=== PATIENT | female | born 1950 | race Caucasian/White ===

== ENCOUNTER → 2016-10-15 | Outpatient (CLI) | payer MEDICARE ==
--- NOTE | 2016-10-16 12:05 | MM ---
Reason for exam: screening (asymptomatic). History: Patient is postmenopausal. Family history of breast cancer in 2 maternal aunts. Physical Findings: A clinical breast exam by your physician is recommended on an annual basis and results should be correlated with mammographic findings. MG 3D Screening Mammo W/Cad Bilateral CC and MLO view(s) were taken. No prior studies available for comparison. Finding #1: There is a 4 mm equal density (isodense), oval mass in the upper outer quadrant of the left breast consistent with probable lymph node. Finding #2: There are typically benign calcifications in both breasts. ASSESSMENT: Probably benign, BI-RAD 3 RECOMMENDATION: Follow-up diagnostic mammogram of the left breast in 6 months.
== END | disposition home or self-care (01) ==
LOC: RADMAMWWP 07:42
PROVIDERS: ATTEND Family Medicine
DX: Z12.31 Encounter for screening mammogram for malignant neoplasm of breast (principal)
CPT/HCPCS: 77063; G0202

== ENCOUNTER → 2016-12-04 | Outpatient (CLI) | payer MEDICARE ==
--- NOTE | 2016-12-04 10:20 | CT ---
EXAMINATION TYPE: CT chest wo con DATE OF EXAM: 12/04/2016 10:08 AM TECHNIQUE: High-resolution images of the chest were obtained at 10 mm intervals and 1 mm slice thickn ess. Imaging was obtained with the patient both prone and supine. COMPARISON: CT scan of the chest dated 10/20/2015 HISTORY: SOB, cough CT DLP: 229 mGycm Automated exposure control for dose reduction was used. FINDINGS: There are diffuse emphysematous changes throughout the lungs. There is minimal interlobular septal th ickening, worse on the left than the right. There is no evidence of bronchiectasis. No parenchymal ma sses are seen. There is no significant axillary, internal mammary, mediastinal or hilar adenopathy. There is no pleu ral or pericardial fluid. The heart is not enlarged. Through the aorta is dilated measuring 3.9 cm. The proximal arch is aneurysmal measuring 3.6 cm. The remainder of the visualized aorta is normal in caliber. There is been surgery on the lower esophagus. Visualized upper abdominal structures are otherwise unr emarkable. Hypertrophic spondylosis within the spine. IMPRESSION: 1. MILD INTERSTITIAL FIBROSIS. 2. DIFFUSE EMPHYSEMATOUS CHANGE. 3. ANEURYSMAL DILATATION OF THE ASCENDING THORACIC AORTA. 4. DEGENERATIVE CHANGES WITHIN THE SPINE.
== END | disposition home or self-care (01) ==
LOC: RADCTMAIN 09:44
PROVIDERS: ATTEND Internal Medicine
DX: J43.9 Emphysema, unspecified (principal); J84.10 Pulmonary fibrosis, unspecified; I71.2 Thoracic aortic aneurysm, without rupture
CPT/HCPCS: 71250

== ENCOUNTER → 2017-01-14 | Outpatient (CLI) | payer MEDICARE ==
[2017-01-14 10:43] LABS: CH 32.3; CHCM 33.7; HCT 39.2 % (34.0-46.0); HDW 2.24; HGB 13.1 gm/dL (11.4-16.0); MCH 32.1 pg (25.0-35.0); MCHC 33.3 g/dL (31.0-37.0); MCV 96.4 fL (80.0-100.0); RBC 4.06 m/uL (3.80-5.40); RDW 13.7 % (11.5-15.5); WBC 4.2 k/uL (3.8-10.6)
[2017-01-14 11:21] LABS: Anion Gap 13 mmol/L; Blood Urea Nitrogen 9 mg/dL (7-17); Carbon Dioxide 23 mmol/L (22-30); Chloride 102 mmol/L (98-107); Non-African American GFR(MDRD) >60 (>60 ml/min/1.73 sqM); Potassium 4.2 mmol/L (3.5-5.1); Sodium 138 mmol/L (137-145)
== END | disposition home or self-care (01) ==
LOC: LABPAT 10:03
PROVIDERS: ATTEND Internal Medicine Interventional Cardiology
DX: Z01.812 Encounter for preprocedural laboratory examination (principal); R07.9 Chest pain, unspecified
CPT/HCPCS: 80051; 82565; 84520; 85027

== ENCOUNTER → 2018-04-13 | Outpatient (CLI) | payer MEDICARE ==
--- NOTE | 2018-04-13 09:33 | CT ---
EXAMINATION TYPE: CT brain wo con DATE OF EXAM: 04/13/2018 COMPARISON: Prior CT brain 02/10/2010 HISTORY: Dizziness, pains down neck CT DLP: 1082 mGycm Automated exposure control for dose reduction was used. Helical acquisition through the brain. FINDINGS: There is no significant interval change. Cerebral vascular calcifications are present. There is again noted cortical atrophy. There is no hemorrhage or hydrocephalus. Periventricular white matter shows patchy low attenuation. Probable osteoma present in the ethmoid air cells, there is also inflammatory change. Orbits show symmetric appearance. Some inflammatory change present within the mastoid air ce lls. There is a fat density focus along the splenium of the corpus callosum compatible with lipoma wh ich is stable. IMPRESSION: NO ACUTE ABNORMALITY. AGE-RELATED CHANGES OF ATROPHY AND CHRONIC SMALL VESSEL ISCHEMIA. SINUS DISEASE . CORRELATE FOR MASTOIDITIS. STABLE LIPOMA OF THE CORPUS CALLOSUM.
== END | disposition home or self-care (01) ==
LOC: RADCTMAIN 07:21
PROVIDERS: ATTEND Internal Medicine
DX: G31.1 Senile degeneration of brain, not elsewhere classified (principal); I67.82 Cerebral ischemia
CPT/HCPCS: 70450

== ENCOUNTER → 2018-04-23 | Outpatient (CLI) | payer MEDICARE ==
--- NOTE | 2018-04-23 08:15 | US ---
EXAMINATION TYPE: US liver DATE OF EXAM: 04/23/2018 COMPARISON: CT chest October 20, 2015 CLINICAL HISTORY: R94.5 Abnormal Liver function Testing. EXAM MEASUREMENTS: Liver Length: 11.3 cm Gallbladder Wall: Surgically absent cm CBD: 0.2 cm Right Kidney: 10.2 x 4.6 x 4.7 cm Pancreas: Tail obscured by overlying bowel gas Liver: wnl Gallbladder: Surgically absent Evidence for sonographic Caro's sign: No CBD: wnl Right Kidney: small cortical cyst 0.7 cm IMPRESSION: No worrisome intrahepatic mass or intrahepatic ductal dilatation is seen.
== END | disposition home or self-care (01) ==
LOC: RADUSWWP 07:01
PROVIDERS: ATTEND Internal Medicine
DX: R79.89 Other specified abnormal findings of blood chemistry (principal)
CPT/HCPCS: 76705

== ENCOUNTER → 2018-06-05 | Outpatient (CLI) | payer MEDICARE ==
[2018-06-05 10:40] LABS: HCT 42.9 % (34.0-46.0); HGB 13.5 gm/dL (11.4-16.0); MCH 29.9 pg (25.0-35.0); MCHC 31.5 g/dL (31.0-37.0); Mean Platelet Volume 6.2; Platelet Count 320 k/uL (150-450); RBC 4.51 m/uL (3.80-5.40); RDW 12.8 % (11.5-15.5); WBC 4.9 k/uL (3.8-10.6)
[2018-06-05 11:27] LABS: T4, Free (Free Thyroxine) 0.82 ng/dL (0.78-2.19)
[2018-06-05 13:52] LABS: ALT 30 U/L (9-52); AST 26 U/L (14-36); Albumin 4.1 g/dL (3.5-5.0); Alkaline Phosphatase 118 U/L (38-126); Anion Gap 11 mmol/L; Blood Urea Nitrogen 14 mg/dL (7-17); Calcium 9.9 mg/dL (8.4-10.2); Carbon Dioxide 24 mmol/L (22-30); Chloride 99 mmol/L (98-107); Glucose 101 mg/dL (74-99); Potassium 4.8 mmol/L (3.5-5.1); Sodium 134 mmol/L (137-145); Total Bilirubin 0.4 mg/dL (0.2-1.3); Total Protein 6.9 g/dL (6.3-8.2)
[2018-06-05 15:55] LABS: Thyroid Peroxidase Antibodies 32.1 U/mL (0.0-60.0)
== END | disposition home or self-care (01) ==
LOC: LABWHC1 10:20
PROVIDERS: ATTEND Internal Medicine Endocrinology, Diabetes & Metabolism
DX: R53.83 Other fatigue (principal); R63.5 Abnormal weight gain
CPT/HCPCS: 36415; 80053; 82533; 82607; 84146; 84439; 84443; 84481; 85027; 86376

== ENCOUNTER → 2020-02-09 | Outpatient (CLI) | payer MEDICARE | END | disposition home or self-care (01) | LOC: LABWHC1 11:52 | PROVIDERS: ATTEND Internal Medicine | DX: Z53.9 Procedure and treatment not carried out, unspecified reason (principal) ==

== ENCOUNTER 2020-10-01 14:10 | Emergency (ER) | payer MEDICARE, OTHER ==
[2020-10-01 14:16] VITALS: BP 130/75; PULSE 95; RESP 18; TEMP 98
[2020-10-01] MEDS ORDERED: diphenhydrAMINE 50 MG/ML 1 ML VIAL IVP STA (14:29)
[2020-10-01] MEDS ORDERED: LORazepam 2 MG/ML INJ IV STA (14:29)
[2020-10-01] MEDS ORDERED: SODIUM CHLORIDE 0.9% 500 ML 500 ML IV ONE (14:29)
[2020-10-01] MEDS ORDERED: FAMOTIDINE 20 MG/2 ML VIAL IV STA (14:30)
--- NOTE | 2020-10-01 14:38 | ED ---
Skin/Abscess/FB HPI - General Chief complaint: Skin/Abscess/Foreign Body Stated complaint: Rash Time Seen by Provider: 10/01/20 14:21 Source: patient Mode of arrival: ambulatory Limitations: no limitations - History of Present Illness Initial comments: 70-year-old female patient presents to the emergency department today for evaluation of generalized rash. Patient states the rash is itchy and painful. States that she has had a rash on and off for the last 6 years and her physician, conservation policy analyst, and autoimmune urologist is unable to figure out what is going on. Patient states that she is unable to take steroids. States that she also gets swelling and pain in her legs with the rash. She denies any fever or chills. Denies any exposure to new substances. States the rash is obtained as it always is there it seems to be more widespread this time. States it is making her crazy and she is unable to sleep. Patient denies any recent cough, s hortness of breath, chest pain, abdominal pain, nausea, vomiting, diarrhea, constipation, back pain, numbness, tingling, dizziness, weakness, hematuria, dysuria, urinary urgency, urinary frequency, headache, visual changes, or any other complaints. - Related Data Home Medications Medication Instructions Recorded Confirmed Cholecalciferol [Vitamin D3] 1,000 unit PO DAILY 01/24/17 01/24/17 Previous Rx's Medication Instructions Recorded hydrOXYzine HCL [Atarax] 25 mg PO QID PRN #30 tab 10/01/20 Allergies Allergy/AdvReac Type Severity Reaction Status Date / Time cortisone [Cortisone] Allergy Swelling Verified 10/01/20 14:13 Iodinated Contrast Media Allergy Rash/Hives Verified 10/01/20 14:13 [Iodinated Contrast Media - Oral and] prednisone Allergy Swelling Verified 10/01/20 14:13 Review of Systems ROS Statement: Those systems with pertinent positive or pertinent negative responses have been documented in the HPI. ROS Other: All systems not noted in ROS Statement are negative. Past Medical History Past Medical History: Chest Pain / Angina, COPD, Hypertension, Osteoarthritis (OA) Additional Past Medical History / Comment(s): not currently taking any medication for blood pressure History of Any Multi-Drug Resistant Organisms: None Reported Past Surgical History: Appendectomy, Cholecystectomy, Heart Catheterization Additional Past Surgical History / Comment(s): duodenal ulcer surg., polyps removed from throat Past Anesthesia/Blood Transfusion Reactions: No Reported Reaction Past Psychological History: No Psychological Hx Reported Smoking Status: Never smoker Past Alcohol Use History: Occasional Past Drug Use History: Marijuana - Past Family History Mother Family Medical History: No Reported History Father Family Medical History: Cancer General Exam Limitations: no limitations General appearance: alert, in no apparent distress, other (This is a well- developed, well-nourished adult female patient who is quite anxious at this time. Vital signs upon presentation are temperature 98.0F, pulse 95, respirations 18, blood pressure 130/75, pulse ox 99% on room air.) ENT exam: Present: normal exam, normal oropharynx, mucous membranes moist Respiratory exam: Present: normal lung sounds bilaterally. Absent: respiratory distress, wheezes, rales, rhonchi, stridor Cardiovascular Exam: Present: regular rate, normal rhythm, normal heart sounds. Absent: systolic murmur, diastolic murmur, rubs, gallop, clicks GI/Abdominal exam: Present: soft, normal bowel sounds. Absent: distended, tenderness, guarding, rebound, rigid Neurological exam: Present: alert, oriented X3, CN II-XII intact Psychiatric exam: Present: normal affect, normal mood Skin exam: Present: warm, dry, intact, normal color, rash (Generalized scabbed lesions noted over the body. There is mild surrounding erythema. They are raised. Non-petechial, nonvesicular) Course Vital Signs 10/01/20 14:13 Temperature 98 F Pulse Rate 95 Respiratory 18 Rate Blood Pressure 130/75 O2 Sat by Pulse 99 Oximetry Medical Decision Making - Medical Decision Making 70-year-old female patient percents to the emergency department today for evaluation of generalized body rash with itching. Physical examination did reveal generalized rash mostly scabbed lesions with mild surrounding erythema, no signs of secondary infection. She is afebrile normal vital signs. Labs reviewed and are unremarkable. She'll be discharged per prescription for Atarax instructed to follow-up with her primary care physician. She has followed up with multiple dermatologists and specialist from [facility] and they are unable to figure out what is causing the rash for the last 6 years. She did express desire to be seen at the [facility] so I did provide this phone number for her though she is instructed she may need a referral from her primary care doctor, she understands. - Lab Data Result diagrams: 10/01/20 14:39 10/01/20 14:39 Lab Results 10/01/20 10/01/20 10/01/20 Range/Units 14:39 14:39 14:39 WBC 8.0 (3.8-10.6) k/uL RBC 3.78 L (3.80-5.40) m/uL Hgb 12.4 (11.4-16.0) gm/dL Hct 37.1 (34.0-46.0) % MCV 98.1 (80.0-100.0) fL MCH 32.8 (25.0-35.0) pg MCHC 33.5 (31.0-37.0) g/dL RDW 13.3 (11.5-15.5) % Plt Count 413 (150-450) k/uL MPV 6.7 Neutrophils % 63 % Lymphocytes % 14 % Monocytes % 5 % Eosinophils % 14 % Basophils % 1 % Neutrophils # 5.0 (1.3-7.7) k/uL Lymphocytes # 1.1 (1.0-4.8) k/uL Monocytes # 0.4 (0-1.0) k/uL Eosinophils # 1.1 H (0-0.7) k/uL Basophils # 0.1 (0-0.2) k/uL Sodium 128 L (137-145) mmol/L Potassium 4.1 (3.5-5.1) mmol/L Chloride 97 L (98-107) mmol/L Carbon Dioxide 24 (22-30) mmol/L Anion Gap 7 mmol/L BUN 8 (7-17) mg/dL Creatinine 0.67 (0.52-1.04) mg/dL Est GFR (CKD-EPI)AfAm >90 (>60 ml/min/1.73 sqM) Est GFR (CKD-EPI)NonAf 90 (>60 ml/min/1.73 sqM) Glucose 105 H (74-99) mg/dL Calcium 9.5 (8.4-10.2) mg/dL Total Bilirubin 0.6 (0.2-1.3) mg/dL AST 30 (14-36) U/L ALT 17 (4-34) U/L Alkaline Phosphatase 103 (38-126) U/L Total Protein 6.5 (6.3-8.2) g/dL Albumin 3.8 (3.5-5.0) g/dL Urine Color Light Yellow Urine Appearance Clear (Clear) Urine pH 5.5 (5.0-8.0) Ur Specific [place] 1.005 (1.001-1.035) Urine Protein Negative (Negative) Urine Glucose (UA) Negative (Negative) Urine Ketones Negative (Negative) Urine Blood Negative (Negative) Urine Nitrite Negative (Negative) Urine Bilirubin Negative (Negative) Urine Urobilinogen <2.0 (<2.0) mg/dL Ur Leukocyte Esterase Small H (Negative) Urine RBC 1 (0-5) /hpf Urine WBC 2 (0-5) /hpf Ur Squamous Epith Cells 1 (0-4) /hpf Urine Mucus Rare H (None) /hpf Disposition Clinical Impression: Rash Disposition: HOME SELF-CARE Condition: Good Instructions (If sedation given, give patient instructions): Acute Rash (ED) Additional Instructions: Follow-up she primary care physician for recheck in 1-2 days. Take medications as directed. [facility] [phone] as you requested. Prescriptions: hydrOXYzine HCL [Atarax] 25 mg PO QID PRN #30 tab PRN Reason: Itching Is patient prescribed a controlled substance at d/c from ED?: No Referrals: Donta Souza MD [Primary Care Provider] - 1-2 days Time of Disposition: 15:43
[2020-10-01 14:55] LABS: Basophils # (A) 0.1 k/uL (0-0.2); Basophils % (A) 1 %; Eosinophils # (A) 1.1 k/uL (0-0.7); Eosinophils % (A) 14 %; HCT 37.1 % (34.0-46.0); HGB 12.4 gm/dL (11.4-16.0); Lymphocytes # (A) 1.1 k/uL (1.0-4.8); Lymphocytes % (A) 14 %; MCH 32.8 pg (25.0-35.0); MCHC 33.5 g/dL (31.0-37.0); MCV 98.1 fL (80.0-100.0); Mean Platelet Volume 6.7; Monocytes # (A) 0.4 k/uL (0-1.0); Monocytes % (A) 5 %; Neutrophils % (A) 63 %; Platelet Count 413 k/uL (150-450); RBC 3.78 m/uL (3.80-5.40); RDW 13.3 % (11.5-15.5)
[2020-10-01 14:58] LABS: Appearance,Urine Clear (Clear); Bilirubin,Urine Negative (Negative); Blood,Urine Negative (Negative); Color,Urine Light Yellow; Glucose,Urine (UA) Negative (Negative); Ketones,Urine Negative (Negative); Leukocyte Esterase,Urine Small (Negative); Mucus,Urine Rare /hpf; Nitrite,Urine Negative (Negative); PH, Urine 5.5 (5.0-8.0); Protein,Urine Negative (Negative); RBC,Urine 1 /hpf (0-5); Specific Gravity,Urine 1.005 (1.001-1.035); Squamous Epithelial Cell,Urine 1 /hpf (0-4); Urobilinogen,Urine <2.0 mg/dL (<2.0); WBC,Urine 2 /hpf (0-5)
[2020-10-01 15:12] LABS: ALT 17 U/L (4-34); AST 30 U/L (14-36); African American GFR (CKD) >90 (>60 ml/min/1.73 sqM); Albumin 3.8 g/dL (3.5-5.0); Alkaline Phosphatase 103 U/L (38-126); Anion Gap 7 mmol/L; Blood Urea Nitrogen 8 mg/dL (7-17); Calcium 9.5 mg/dL (8.4-10.2); Carbon Dioxide 24 mmol/L (22-30); Chloride 97 mmol/L (98-107); Glucose 105 mg/dL (74-99); Non-African American GFR(CKD) 90 (>60 ml/min/1.73 sqM); Potassium 4.1 mmol/L (3.5-5.1); Sodium 128 mmol/L (137-145); Total Bilirubin 0.6 mg/dL (0.2-1.3); Total Protein 6.5 g/dL (6.3-8.2)
[2020-10-01] MEDS ORDERED: ACET/COD 300 MG/30 MG STARTER PACK 6 TAB BTL PO STA (15:43)
== END 2020-10-01 16:09 | disposition home or self-care (01) ==
LOC: EC 14:10
DX: R21 Rash and other nonspecific skin eruption (principal); L29.9 Pruritus, unspecified; L53.9 Erythematous condition, unspecified; M79.89 Other specified soft tissue disorders; M79.605 Pain in left leg; M79.604 Pain in right leg; Z88.8 Allergy status to other drugs, medicaments and biological substances; Z91.041 Radiographic dye allergy status; Z95.5 Presence of coronary angioplasty implant and graft
CPT/HCPCS: 36415; 80053; 85025; 81001; 99283; 96374; 96375 ×2; 96361; J2060; J1200

== ENCOUNTER 2022-08-06 14:14 | Emergency (ER) | payer MEDICARE, OTHER ==
[2022-08-06 14:23] VITALS: TEMP 97.2
[2022-08-06] MEDS ORDERED: SODIUM CHLORIDE 0.9% 1,000 ML IV STA (14:58)
[2022-08-06] MEDS ORDERED: MORPHINE SULFATE 2 MG/ML SYRINGE IVP STA (14:58)
--- NOTE | 2022-08-06 15:05 | ED ---
Fall HPI - General Chief Complaint: Fall Stated Complaint: fall Time Seen by Provider: 08/06/22 14:16 Source: patient, family, EMS, RN notes reviewed Mode of arrival: EMS - History of Present Illness Initial Comments: This is a 72-year-old female who presents to the emergency department for a fall. States that around 7:30 AM she had been driving to the grocery store, but "didn't feel right", which she describes as dizziness. She had to come home and felt like she was unable to keep driving. Several hours later, she became dizzy and lost her balance, causing her to fall. Currently complaining of pain to the right knee and elbow. She does not believe that she hit her head or had any loss of consciousness. Not on any blood thinners. She does have notable expressive aphasia, her states that this began in December of last year and she has been evaluated at [facility] and they are not able to determine if she has had any strokes in the past. They believe that this may be a prolonged side effect from a medication she was on several years ago. The dizziness and loss of balance has become a recurrent issue for her with no known cause. Denies any fevers, chills, sore throat, cough, dyspnea, chest pain, palpitations, abdominal pain, nausea, vomiting, diarrhea, back pain, or headaches. MD Complaint: fall Fall From: standing Place Fall Occurred: home Loss of Consciousness: none Prolonged Down Time?: yes Location - Extremities: Right: Elbow, Knee - Related Data Home Medications Medication Instructions Recorded Confirmed Cholecalciferol [Vitamin D3] 1,000 unit PO DAILY 01/24/17 01/24/17 Previous Rx's Medication Instructions Recorded hydrOXYzine HCL [Atarax] 25 mg PO QID PRN #30 tab 10/01/20 hydrOXYzine pamoate [Vistaril] 25 mg PO Q6H PRN #30 capsule 10/01/20 Allergies Allergy/AdvReac Type Severity Reaction Status Date / Time cortisone [Cortisone] Allergy Swelling Verified 08/06/22 14:23 Iodinated Contrast Media Allergy Rash/Hives Verified 08/06/22 14:23 [Iodinated Contrast Media - Oral and] prednisone Allergy Swelling Verified 08/06/22 14:23 Review of Systems ROS Statement: Those systems with pertinent positive or pertinent negative responses have been documented in the HPI. ROS Other: All systems not noted in ROS Statement are negative. Past Medical History Past Medical History: Chest Pain / Angina, COPD, Hypertension, Osteoarthritis (OA) Additional Past Medical History / Comment(s): not currently taking any medication for blood pressure History of Any Multi-Drug Resistant Organisms: None Reported Past Surgical History: Appendectomy, Cholecystectomy, Heart Catheterization Additional Past Surgical History / Comment(s): duodenal ulcer surg., polyps removed from throat Past Anesthesia/Blood Transfusion Reactions: No Reported Reaction Past Psychological History: No Psychological Hx Reported Smoking Status: Never smoker Past Alcohol Use History: Occasional Past Drug Use History: Marijuana - Past Family History Mother Family Medical History: No Reported History Father Family Medical History: Cancer General Exam Limitations: no limitations General appearance: alert, in no apparent distress Head exam: Present: atraumatic, normocephalic, normal inspection Eye exam: Present: normal appearance, PERRL, EOMI. Absent: scleral icterus, conjunctival injection, periorbital swelling Neck exam: Present: normal inspection. Absent: tenderness, meningismus, lymphadenopathy Respiratory exam: Present: normal lung sounds bilaterally. Absent: respiratory distress, wheezes, rales, rhonchi, stridor Cardiovascular Exam: Present: regular rate, normal rhythm, normal heart sounds. Absent: systolic murmur, diastolic murmur, rubs, gallop, clicks Extremities exam: Present: other (Swelling, tenderness, and ecchymosis to the right patella. Limited range of motion secondary to pain. Minor ecchymosis and swelling to the right elbow with overlying superficial laceration. Bleeding is controlled.) Neurological exam: Present: alert, oriented X3, other Expanded Patient oriented to: Present: person, place Speech: Present: expressive aphasia (baseline) Cranial nerves: EOM's Intact: Normal, Facial Sensation: Normal Eye Response: (4) open spontaneously Motor Response: (6) obeys commands Verbal Response: (5) oriented Taiwo Total: 15 Psychiatric exam: Present: normal affect, normal mood Skin exam: Present: warm, dry, intact, normal color. Absent: rash Course Vital Signs 08/06/22 08/06/22 14:19 15:55 Temperature 97.2 F L Pulse Rate 92 84 Respiratory 22 20 Rate Blood Pressure 143/86 153/78 O2 Sat by Pulse 100 100 Oximetry Medical Decision Making - Medical Decision Making This is a 72-year-old female who presents to the emergency department for a fall. Computed tomography scan of the brain and c-spine obtained, revealing a very small subarachnoid hemorrhage to the left frontal lobe. Case discussed with the ED attending, Dr. Pickett, who advised that this may be a nontraumatic bleed from an aneurysm or due to high blood pressure. EKG reveals no ischemic changes and her lab work was nonactionable. X-ray of the chest, right elbow, and right knee obtained as well revealing no acute findings. Given the subarachnoid hemorrhage, patient will be transferred to [facility] for further evaluation and management, as we do not have neurosurgery available here. Dr. Toscano is the accepting physician. This case was discussed in detail with the attending ED physician. Presentation, findings, and treatment plan discussed in detail as well. - Lab Data Result diagrams: 08/06/22 15:12 08/06/22 15:12 Lab Results 08/06/22 08/06/22 08/06/22 Range/Units 15:12 15:12 15:12 WBC 3.7 L (3.8-10.6) k/uL RBC 4.18 (3.80-5.40) m/uL Hgb 13.2 (11.4-16.0) gm/dL Hct 37.7 (34.0-46.0) % MCV 90.2 (80.0-100.0) fL MCH 31.6 (25.0-35.0) pg MCHC 35.0 (31.0-37.0) g/dL RDW 12.3 (11.5-15.5) % Plt Count 248 (150-450) k/uL MPV 7.9 Neutrophils % 71 % Lymphocytes % 17 % Monocytes % 9 % Eosinophils % 1 % Basophils % 1 % Neutrophils # 2.6 (1.3-7.7) k/uL Lymphocytes # 0.7 L (1.0-4.8) k/uL Monocytes # 0.4 (0-1.0) k/uL Eosinophils # 0.0 (0-0.7) k/uL Basophils # 0.0 (0-0.2) k/uL Sodium 133 L (137-145) mmol/L Potassium 3.6 (3.5-5.1) mmol/L Chloride 100 (98-107) mmol/L Carbon Dioxide 23 (22-30) mmol/L Anion Gap 10 mmol/L BUN 19 H (7-17) mg/dL Creatinine 0.90 (0.52-1.04) mg/dL Est GFR (CKD-EPI)AfAm 74 (>60 ml/min/1.73 sqM) Est GFR (CKD-EPI)NonAf 64 (>60 ml/min/1.73 sqM) Glucose 126 H (74-99) mg/dL Calcium 9.0 (8.4-10.2) mg/dL Total Bilirubin 0.6 (0.2-1.3) mg/dL AST 20 (14-36) U/L ALT 13 (4-34) U/L Alkaline Phosphatase 99 (38-126) U/L Creatine Kinase 69 (30-135) U/L Troponin I <0.012 (0.000-0.034) ng/mL Total Protein 6.2 L (6.3-8.2) g/dL Albumin 3.8 (3.5-5.0) g/dL - EKG Data EKG Comments: Sinus rhythm. Normal axis. Ventricular rate 84 bpm, MO interval 146 ms, QRS duration 90 ms, QTC 421 ms. - Radiology Data Radiology results: report reviewed, image reviewed Disposition Clinical Impression: Subarachnoid hemorrhage Disposition: OTHER INSTITUTION NOT DEFINED Referrals: Donta Souza MD [Primary Care Provider] - 1-2 days - Out of Hospital Transfer - Req. Specs Out of Hospital Transfer - Requested Specifics: Other Emergency Center ([facility]
--- NOTE | 2022-08-06 15:11 | CT ---
EXAMINATION TYPE: CT brain domoniqueine wo con DATE OF EXAM: 08/06/2022 COMPARISON: Brain 04/13/2018 HISTORY: 72 year-old female head injury, pain after fall CT DLP: 1399.6 mGycm Automated exposure control for dose reduction was used. Technique: Examination of the head was done in axial plane without intravenous contrast. Coronal and sagittal reconstructions performed. CT of the cervical spine was obtained in axial plane without intravenous injection of contrast mater ial. Coronal and sagittal reformatted images were obtained from the axial views for evaluation of f ractures, spinal alignment and canal. FINDINGS: Head: Moderate generalized supratentorial volume loss. Secondary mild ventricular prominence similar to merritt or exam. Unchanged intracranial lipoma right paramedian aspect, partially surrounding the splenium of the corpus callosum. Similar slight distortion of the adjacent falx cerebra. Moderate patchy white matter hypodensities in both cerebral hemispheres show progression from 2018. Trace gyriform hyperdensity is present scattered within the left frontal lobe, axial images 45 throug h 47. No other evidence of acute intracranial hemorrhage or other extra-axial fluid collection. No ac [place] ischemic changes, mass, mass-effect, or extra-axial fluid collection. There is no effacement of cerebral sulci or basal subarachnoid cisterns. Posey-white matter distinction is preserved. There is partially opacifying the bilateral mastoid air cells. Moderate mucosal thickening throughout the ethmoid air cells. There is a small 5 mm osteoma present within the posterior left ethmoid air c ells. Orbits and globes are intact. Cervical spine: No craniocervical junction anomaly, predental space widening, or prevertebral soft tissue swelling. S evere degenerative change of the C1 dens articulation possibly with some early bony ankylosis. Severe hypertrophic facet arthropathy towards the left. Moderate disc/endplate degenerative changes especially lower cervical spine. There is a degenerative grade 1 anterolisthesis C3-C4 and degenerative grade 1 retrolisthesis C5-C6 a nd C6-C7. No acute fracture of the cervical spine. There may be moderate spinal canal narrowing at C5-C6 and mild to moderate at C6/C7. At C2-C3, changes result in a severe left neuroforaminal stenosis. At C3-C4, changes resulting in severe left neuroforaminal stenosis. Moderate on the right. At C5-C6, moderate to severe left and moderate right neuroforaminal stenosis. At C6-C7, mild to moderate left and mild right neuroforaminal stenosis. Sagittal and coronal reformatted images confirm above findings. COMBINED IMPRESSION: 1. Trace acute subarachnoid blood along the left frontal lobe. No mass effect or new midline shift. C ritical finding called to the ER and given to BERNARDO Hussein at 3:06 PM. 2. Moderate generalized cerebral atrophy and moderate burden of chronic vessel ischemic disease, both show slight progression from 2018. 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 3. No acute fracture of the cervical spine. Moderate to advanced spondylotic change of the cervical s pine with multilevel degenerative grade 1 spondylolistheses. Variable neuroforaminal stenoses as outl ined above. 4. Fluid trapped in the bilateral mastoid air cells. Correlate for any mastoid pain to exclude mastoi ditis. There is also moderate chronic ethmoid sinus disease.
[2022-08-06 15:21] LABS: Basophils % (A) 1 %; Eosinophils % (A) 1 %; HCT 37.7 % (34.0-46.0); HGB 13.2 gm/dL (11.4-16.0); Lymphocytes # (A) 0.7 k/uL (1.0-4.8); Lymphocytes % (A) 17 %; MCH 31.6 pg (25.0-35.0); MCV 90.2 fL (80.0-100.0); Mean Platelet Volume 7.9; Monocytes # (A) 0.4 k/uL (0-1.0); Monocytes % (A) 9 %; Neutrophils # (A) 2.6 k/uL (1.3-7.7); Neutrophils % (A) 71 %; Platelet Count 248 k/uL (150-450); RBC 4.18 m/uL (3.80-5.40); RDW 12.3 % (11.5-15.5); WBC 3.7 k/uL (3.8-10.6)
[2022-08-06 15:31] LABS: Albumin 3.8 g/dL (3.5-5.0); Potassium 3.6 mmol/L (3.5-5.1); Total Bilirubin 0.6 mg/dL (0.2-1.3); Total Protein 6.2 g/dL (6.3-8.2)
--- NOTE | 2022-08-06 15:52 | XR ---
EXAMINATION TYPE: XR chest 2V DATE OF EXAM: 08/06/2022 COMPARISON: Chest x-ray 08/26/2014 HISTORY: Trauma and pain TECHNIQUE: Frontal and lateral views of the chest are obtained. FINDINGS: Patient is rotated. Aorta is dense. Surgical clips are present at the gastroesophageal junc tion. There is no focal air space opacity, pleural effusion, or pneumothorax seen. The cardiac silho uette size is within normal limits. The osseous structures are intact, there is a spinal curvature, thoracic spondylosis. IMPRESSION: No acute cardiopulmonary process.
--- NOTE | 2022-08-06 15:53 | XR ---
Right elbow HISTORY: Trauma and pain 5 views of the right elbow Bone mineralization, joint spaces and alignment are maintained. No evident elbow joint effusion. IMPRESSION: No fracture or dislocation of the right upper lobe.
--- NOTE | 2022-08-06 15:54 | XR ---
Right knee HISTORY: Trauma and pain 3 views the right knee Bone mineralization is mildly reduced. Some loss of joint space present in the medial compartment. Al ignment is maintained. No sizable joint effusion. IMPRESSION: No fracture or dislocation is evident.
[2022-08-06 15:57] VITALS: RESP 20
[2022-08-06 17:32] VITALS: BP 151/94; PULSE 86
[2022-08-06 18:03] LABS: Appearance,Urine Clear (Clear); Bilirubin,Urine Negative (Negative); Blood,Urine Trace (Negative); Color,Urine Yellow; Glucose,Urine (UA) Trace (Negative); Ketones,Urine Trace (Negative); Leukocyte Esterase,Urine Trace (Negative); Nitrite,Urine Negative (Negative); PH, Urine 5.5 (5.0-8.0); Protein,Urine Negative (Negative); RBC,Urine 3 /hpf (0-5); Specific Gravity,Urine 1.013 (1.001-1.035); Squamous Epithelial Cell,Urine 1 /hpf (0-4); Urobilinogen,Urine <2.0 mg/dL (<2.0); WBC,Urine <1 /hpf (0-5)
== END 2022-08-06 18:24 | disposition other institution (70) ==
LOC: EC 14:14
DX: I60.9 Nontraumatic subarachnoid hemorrhage, unspecified (principal); J44.9 Chronic obstructive pulmonary disease, unspecified; I10 Essential (primary) hypertension; M19.90 Unspecified osteoarthritis, unspecified site; F12.90 Cannabis use, unspecified, uncomplicated; Z91.041 Radiographic dye allergy status; Z88.8 Allergy status to other drugs, medicaments and biological substances; W18.30XA Fall on same level, unspecified, initial encounter
CPT/HCPCS: 36415; 93005; 80053; 82550; 84484; 85025; 81001; 73080; 73562; 71046; 72125; 70450; 99285; 96374; 96361 ×3; J2270

== ENCOUNTER 2022-09-18 05:38 | Inpatient (IN) | payer MEDICARE, OTHER ==
[2022-09-18] MEDS ORDERED: SODIUM CHLORIDE 0.9% 1,000 ML IV STA (05:47)
[2022-09-18] MEDS ORDERED: SODIUM CHLORIDE 0.9% 500 ML 500 ML IV STA (05:47)
[2022-09-18] MEDS ORDERED: ONDANSETRON 4 MG TAB PO STA (05:48)
[2022-09-18] MEDS ORDERED: PANTOPRAZOLE 40 MG/10 ML VIAL IVP STA (05:48)
[2022-09-18 05:51] VITALS: TEMP 97.4
--- NOTE | 2022-09-18 05:59 | ED ---
SOB HPI - General Chief Complaint: Shortness of Breath Stated Complaint: coughing up blood Time Seen by Provider: 09/18/22 05:47 Source: patient, EMS, RN notes reviewed, old records reviewed Mode of arrival: EMS Limitations: physical limitation - History of Present Illness Initial Comments: This is a 72-year-old female to the emergency department for evaluation patient presents today for evaluation regards to vomiting and coughing up blood significantly. Patient is barely awake and alert with severely low oxygen low blood pressure. Patient unable to provide history history provided from EMS and patient care providers, is at bedside patient states she is becoming decreased level of consciousness responsiveness since last night. Patient was recently discharged from [facility] where she was diagnosed with lung cancer after fall some staining a subarachnoid hemorrhage. Patient herself is complaining of weakness and persistent cough with blood MD Complaint: shortness of breath, cough -: days(s) Radiation: back Severity: severe Severity scale (1-10): 10 Quality: dull Consistency: constant Improves With: oxygen (Barely improving) Worsens With: nothing Known History Of: COPD, other (reecent diagnosis of LungCA) Context: recent URI, anxiety Associated Symptoms: denies other symptoms Treatments Prior to Arrival: none - Related Data Home Medications Medication Instructions Recorded Confirmed Acetaminophen Tab [Tylenol Tab] 1,000 mg PO Q6H PRN 09/18/22 09/18/22 Atorvastatin [Lipitor] 80 mg PO HS 09/18/22 09/18/22 bisacodyL [Bisacodyl] 5 mg PO DAILY PRN 09/18/22 09/18/22 hydrOXYzine HCL [Atarax] 10 mg PO BID PRN 09/18/22 09/18/22 polyethylene glycoL 3350 [Miralax] 17 gm PO DAILY 09/18/22 09/18/22 Allergies Allergy/AdvReac Type Severity Reaction Status Date / Time cortisone [Cortisone] Allergy Swelling Verified 09/18/22 09:46 Iodinated Contrast Media Allergy Rash/Hives Verified 09/18/22 09:46 [Iodinated Contrast Media - Oral and] prednisone Allergy Swelling Verified 09/18/22 09:46 Review of Systems ROS Statement: Those systems with pertinent positive or pertinent negative responses have been documented in the HPI. ROS Other: All systems not noted in ROS Statement are negative. Past Medical History Past Medical History: Chest Pain / Angina, COPD, Hypertension, Osteoarthritis (OA) Additional Past Medical History / Comment(s): not currently taking any medication for blood pressure History of Any Multi-Drug Resistant Organisms: None Reported Past Surgical History: Appendectomy, Cholecystectomy, Heart Catheterization Additional Past Surgical History / Comment(s): duodenal ulcer surg., polyps removed from throat Past Anesthesia/Blood Transfusion Reactions: No Reported Reaction Past Psychological History: No Psychological Hx Reported Smoking Status: Never smoker Past Alcohol Use History: Occasional Past Drug Use History: Marijuana - Past Family History Mother Family Medical History: No Reported History Father Family Medical History: Cancer General Exam - General Exam Comments Initial Comments: Patient is coughing up scant blood here in the emergency department Limitations: physical limitation General appearance: alert, anxious, lethargic, in distress Head exam: Present: atraumatic, normocephalic, normal inspection Eye exam: Present: normal appearance, PERRL, EOMI. Absent: scleral icterus, conjunctival injection, periorbital swelling ENT exam: Present: normal exam, mucous membranes moist Neck exam: Present: normal inspection. Absent: tenderness, meningismus, lymphadenopathy Respiratory exam: Present: respiratory distress, wheezes, rhonchi. Absent: rales, stridor Cardiovascular Exam: Present: normal rhythm, tachycardia, normal heart sounds. Absent: systolic murmur, diastolic murmur, rubs, gallop, clicks GI/Abdominal exam: Present: soft, normal bowel sounds. Absent: distended, tenderness, guarding, rebound, rigid Extremities exam: Present: normal inspection, full ROM, normal capillary refill. Absent: tenderness, pedal edema, joint swelling, calf tenderness Back exam: Present: normal inspection Neurological exam: Present: alert, oriented X3, CN II-XII intact Psychiatric exam: Present: normal affect, normal mood Skin exam: Present: warm, dry, intact, normal color. Absent: rash Course Vital Signs 09/18/22 09/18/22 09/18/22 05:47 05:51 05:56 Temperature 97.4 F L Pulse Rate 129 H 116 H Respiratory 28 H Rate Blood Pressure 100/65 70/49 70/28 O2 Sat by Pulse 97 97 Oximetry 09/18/22 09/18/22 09/18/22 05:57 06:00 06:22 Temperature Pulse Rate 110 H 112 H Respiratory Rate Blood Pressure 95/65 107/65 O2 Sat by Pulse 99 Oximetry 09/18/22 09/18/22 09/18/22 06:30 06:42 06:44 Temperature Pulse Rate 117 H 111 H Respiratory 17 17 Rate Blood Pressure 140/86 O2 Sat by Pulse 100 Oximetry 09/18/22 09/18/22 09/18/22 07:48 07:51 08:22 Temperature Pulse Rate 92 91 105 H Respiratory 18 Rate Blood Pressure 156/96 O2 Sat by Pulse 99 92 L Oximetry 09/18/22 09/18/22 09/18/22 08:30 08:45 08:57 Temperature Pulse Rate 102 H 106 H 102 H Respiratory 18 Rate Blood Pressure 177/86 O2 Sat by Pulse 98 Oximetry 09/18/22 09/18/22 09/18/22 09:03 10:39 11:25 Temperature Pulse Rate 103 H 135 H 125 H Respiratory 22 Rate Blood Pressure 120/80 O2 Sat by Pulse 93 L Oximetry 09/18/22 09/18/22 09/18/22 11:36 13:04 14:15 Temperature Pulse Rate 120 H 125 H 144 H Respiratory 18 Rate Blood Pressure 120/80 60/33 O2 Sat by Pulse 98 92 L Oximetry 09/18/22 14:30 Temperature Pulse Rate 168 H Respiratory Rate Blood Pressure 105/56 O2 Sat by Pulse Oximetry - Reevaluation(s) Reevaluation #1: 09/18/22 07:06 Records reviewed Reevaluation #2: 09/18/22 07:06 Patient is refusing NG tube Blood pressure is improving with IV hydration Reevaluation #3: 09/18/22 07:06 Patient patient has not vomited any blood output since she's been in emergency department Patient is coughing up blood here in the emergency department Reevaluation #4: 09/18/22 Oxygen levels are improving patient is given oxygen both through nonrebreather and she can tolerate not coughing, she is also on nasal cannula 6 L, getting b reathing treatments, patient is given TXa today nebulizers due to hemoptysis - Consultations Consultation #1: Spoke with EM will see patient in the emergency department Medical Decision Making - Medical Decision Making 72 female to the ER for evaluation patient is just discharged from rehab severely weak lightheaded near syncopal a significant hemoptysis gross hemoptysis coughing up blood with recent diagnosis of lung cancer no blood thinners. Patient hemoglobin is normal blood pressure responded IV hydration will not transfuse at this point. Patient given TX a few nebulizing treatments 2 with more planned. Patient does state that seems to be helping. - Lab Data Result diagrams: 09/18/22 16:16 09/18/22 16:16 Lab Results 09/18/22 09/18/22 09/18/22 Range/Units 05:50 05:55 05:57 WBC 11.0 H (3.8-10.6) k/uL RBC 3.78 L (3.80-5.40) m/uL Hgb 11.5 (11.4-16.0) gm/dL Hct 34.3 (34.0-46.0) % MCV 90.7 (80.0-100.0) fL MCH 30.5 (25.0-35.0) pg MCHC 33.6 (31.0-37.0) g/dL RDW 13.4 (11.5-15.5) % Plt Count 621 H D (150-450) k/uL MPV 8.9 Neutrophils % 76 % Lymphocytes % 11 % Monocytes % 6 % Eosinophils % 5 % Basophils % 1 % Neutrophils # 8.3 H (1.3-7.7) k/uL Lymphocytes # 1.2 (1.0-4.8) k/uL Monocytes # 0.7 (0-1.0) k/uL Eosinophils # 0.6 (0-0.7) k/uL Basophils # 0.1 (0-0.2) k/uL Hypochromasia Slight PT (9.0-12.0) sec INR (<1.2) APTT (22.0-30.0) sec Sodium (137-145) mmol/L Potassium (3.5-5.1) mmol/L Chloride (98-107) mmol/L Carbon Dioxide (22-30) mmol/L Anion Gap mmol/L BUN (7-17) mg/dL Creatinine (0.52-1.04) mg/dL Est GFR (CKD-EPI)AfAm (>60 ml/min/1.73 sqM) Est GFR (CKD-EPI)NonAf (>60 ml/min/1.73 sqM) Glucose (74-99) mg/dL Lactic Ac Sepsis Rflx Plasma Lactic Acid Norm (0.7-2.0) mmol/L Calcium (8.4-10.2) mg/dL Magnesium (1.6-2.3) mg/dL Total Bilirubin (0.2-1.3) mg/dL AST (14-36) U/L ALT (4-34) U/L Alkaline Phosphatase (38-126) U/L Ammonia (<30) umol/L Troponin I (0.000-0.034) ng/mL Total Protein (6.3-8.2) g/dL Albumin (3.5-5.0) g/dL Lipase (23-300) U/L Blood Type O Negative Blood Type Confirm O Negative Blood Type Recheck No Previous Record Bld Type Recheck Status CABO Indicated Antibody Screen NEGATIVE Crossmatch See Detail Spec Expiration Date 09/21/2022 - 234909/18/22 09/18/22 09/18/22 Range/Units 05:57 05:57 05:57 WBC (3.8-10.6) k/uL RBC (3.80-5.40) m/uL Hgb (11.4-16.0) gm/dL Hct (34.0-46.0) % MCV (80.0-100.0) fL MCH (25.0-35.0) pg MCHC (31.0-37.0) g/dL RDW (11.5-15.5) % Plt Count (150-450) k/uL MPV Neutrophils % % Lymphocytes % % Monocytes % % Eosinophils % % Basophils % % Neutrophils # (1.3-7.7) k/uL Lymphocytes # (1.0-4.8) k/uL Monocytes # (0-1.0) k/uL Eosinophils # (0-0.7) k/uL Basophils # (0-0.2) k/uL Hypochromasia PT 10.7 (9.0-12.0) sec INR 1.0 (<1.2) APTT 23.8 (22.0-30.0) sec Sodium 133 L (137-145) mmol/L Potassium 3.7 (3.5-5.1) mmol/L Chloride 103 (98-107) mmol/L Carbon Dioxide 20 L (22-30) mmol/L Anion Gap 10 mmol/L BUN 10 (7-17) mg/dL Creatinine 0.62 (0.52-1.04) mg/dL Est GFR (CKD-EPI)AfAm >90 (>60 ml/min/1.73 sqM) Est GFR (CKD-EPI)NonAf >90 (>60 ml/min/1.73 sqM) Glucose 157 H (74-99) mg/dL Lactic Ac Sepsis Rflx Plasma Lactic Acid Norm (0.7-2.0) mmol/L Calcium 8.7 (8.4-10.2) mg/dL Magnesium 1.2 L (1.6-2.3) mg/dL Total Bilirubin 0.8 (0.2-1.3) mg/dL AST 22 (14-36) U/L ALT 13 (4-34) U/L Alkaline Phosphatase 147 H (38-126) U/L Ammonia (<30) umol/L Troponin I <0.012 (0.000-0.034) ng/mL Total Protein 5.7 L (6.3-8.2) g/dL Albumin 2.8 L (3.5-5.0) g/dL Lipase 28 (23-300) U/L Blood Type Blood Type Confirm Blood Type Recheck Bld Type Recheck Status Antibody Screen Crossmatch Spec Expiration Date 09/18/22 09/18/22 Range/Units 06:20 06:59 WBC (3.8-10.6) k/uL RBC (3.80-5.40) m/uL Hgb (11.4-16.0) gm/dL Hct (34.0-46.0) % MCV (80.0-100.0) fL MCH (25.0-35.0) pg MCHC (31.0-37.0) g/dL RDW (11.5-15.5) % Plt Count (150-450) k/uL MPV Neutrophils % % Lymphocytes % % Monocytes % % Eosinophils % % Basophils % % Neutrophils # (1.3-7.7) k/uL Lymphocytes # (1.0-4.8) k/uL Monocytes # (0-1.0) k/uL Eosinophils # (0-0.7) k/uL Basophils # (0-0.2) k/uL Hypochromasia PT (9.0-12.0) sec INR (<1.2) APTT (22.0-30.0) sec Sodium (137-145) mmol/L Potassium (3.5-5.1) mmol/L Chloride (98-107) mmol/L Carbon Dioxide (22-30) mmol/L Anion Gap mmol/L BUN (7-17) mg/dL Creatinine (0.52-1.04) mg/dL Est GFR (CKD-EPI)AfAm (>60 ml/min/1.73 sqM) Est GFR (CKD-EPI)NonAf (>60 ml/min/1.73 sqM) Glucose (74-99) mg/dL Lactic Ac Sepsis Rflx Y Plasma Lactic Acid Norm 2.3 H* (0.7-2.0) mmol/L Calcium (8.4-10.2) mg/dL Magnesium (1.6-2.3) mg/dL Total Bilirubin (0.2-1.3) mg/dL AST (14-36) U/L ALT (4-34) U/L Alkaline Phosphatase (38-126) U/L Ammonia 25 (<30) umol/L Troponin I (0.000-0.034) ng/mL Total Protein (6.3-8.2) g/dL Albumin (3.5-5.0) g/dL Lipase (23-300) U/L Blood Type Blood Type Confirm Blood Type Recheck Bld Type Recheck Status Antibody Screen Crossmatch Spec Expiration Date - EKG Data -: EKG Interpreted by Me (EKG is sinus a cardia 129 WV 131 QRS 85 QTC 414) - Radiology Data Radiology results: report reviewed (CHest x-ray shows likely lower lobe pneumonia), image reviewed Critical Care Time Critical Care Time: Yes Total Critical Care Time: 31 Disposition Clinical Impression: Acute exacerbation of chronic obstructive pulmonary disease, Hemoptysis, Lung cancer, Weakness, Aspiration pneumonia, Community acquired pneumonia, Near syncope Disposition: ADMITTED IP TO THIS HOSP Condition: Serious Is patient prescribed a controlled substance at d/c from ED?: No Time of Disposition: 07:00
[2022-09-18] MEDS ORDERED: ONDANSETRON 4 MG/2 ML VIAL IVP PRN (06:01)
[2022-09-18] MEDS ORDERED: ONDANSETRON 4 MG/2 ML VIAL IVP STA (06:01)
[2022-09-18] MEDS ORDERED: TRANEXAMIC ACID 1,000 MG/10 ML VIAL MISCELLANE ONE (06:07)
[2022-09-18 06:21] LABS: ALT 13 U/L (4-34); AST 22 U/L (14-36); African American GFR (CKD) >90 (>60 ml/min/1.73 sqM); Albumin 2.8 g/dL (3.5-5.0); Alkaline Phosphatase 147 U/L (38-126); Anion Gap 10 mmol/L; Blood Urea Nitrogen 10 mg/dL (7-17); Calcium 8.7 mg/dL (8.4-10.2); Carbon Dioxide 20 mmol/L (22-30); Chloride 103 mmol/L (98-107); Glucose 157 mg/dL (74-99); Lipase 28 U/L (23-300); Magnesium 1.2 mg/dL (1.6-2.3); Non-African American GFR(CKD) >90 (>60 ml/min/1.73 sqM); Sodium 133 mmol/L (137-145); Total Bilirubin 0.8 mg/dL (0.2-1.3); Total Protein 5.7 g/dL (6.3-8.2)
--- NOTE | 2022-09-18 06:24 | XR ---
EXAMINATION TYPE: XR chest 1V portable DATE OF EXAM: 09/18/2022 COMPARISON: 08/06/2022 HISTORY: Cough TECHNIQUE: FINDINGS: Heart size is normal. No heart failure. There is some coarsening of interstitial markings i n the left lower lobe. There are no hilar masses. There are chest leads. No pleural effusion. Bony th orax is intact. IMPRESSION: Mild left lower lobe interstitial infiltrate increased compared to the old exam. No heart failure.
[2022-09-18 06:39] LABS: Partial Thromboplastin Time 23.8 sec (22.0-30.0); Prothrombin Time 10.7 sec (9.0-12.0)
[2022-09-18 06:46] LABS: Potassium 3.7 mmol/L (3.5-5.1)
[2022-09-18 06:59] LABS: Lactic Acid, Venous 2.3 mmol/L (0.7-2.0)
[2022-09-18] MEDS ORDERED: NALOXONE 0.4 MG/ML 1 ML VIAL IV PRN (07:01)
[2022-09-18] MEDS ORDERED: MORPHINE SULFATE 4 MG/ML SYRINGE IV PRN (07:01)
[2022-09-18] MEDS: SODIUM CHLORIDE 0.9% 1,000 ML IV SCH ×2 (07:43→15:45)
[2022-09-18] MEDS ORDERED: TRANEXAMIC ACID 1,000 MG/10 ML VIAL INHALATION ONE (07:51)
[2022-09-18 07:54] LABS: Basophils # (A) 0.1 k/uL (0-0.2); Basophils % (A) 1 %; Eosinophils # (A) 0.6 k/uL (0-0.7); Eosinophils % (A) 5 %; HCT 34.3 % (34.0-46.0); HGB 11.5 gm/dL (11.4-16.0); Hypochromasia Slight; Lymphocytes # (A) 1.2 k/uL (1.0-4.8); Lymphocytes % (A) 11 %; MCH 30.5 pg (25.0-35.0); MCHC 33.6 g/dL (31.0-37.0); MCV 90.7 fL (80.0-100.0); Mean Platelet Volume 8.9; Monocytes # (A) 0.7 k/uL (0-1.0); Monocytes % (A) 6 %; Neutrophils # (A) 8.3 k/uL (1.3-7.7); Neutrophils % (A) 76 %; RBC 3.78 m/uL (3.80-5.40); RDW 13.4 % (11.5-15.5)
[2022-09-18 07:58] LABS: Platelet Count 621 k/uL (150-450)
[2022-09-18] MEDS: IPRATROPIUM-ALBUTEROL 3 ML NEB INHALATION SCH ×2 (08:22→11:24)
[2022-09-18] MEDS ORDERED: PANTOPRAZOLE 40 MG/10 ML VIAL IV SCH (09:00)
[2022-09-18 09:19] LABS: Basophils % (A) 0 %; Eosinophils # (A) 0.2 k/uL (0-0.7); Eosinophils % (A) 1 %; HCT 30.9 % (34.0-46.0); HGB 10.4 gm/dL (11.4-16.0); Lymphocytes # (A) 0.8 k/uL (1.0-4.8); Lymphocytes % (A) 5 %; MCH 30.2 pg (25.0-35.0); MCHC 33.7 g/dL (31.0-37.0); MCV 89.4 fL (80.0-100.0); Monocytes # (A) 0.7 k/uL (0-1.0); Monocytes % (A) 4 %; Neutrophils % (A) 89 %; Platelet Count 556 k/uL (150-450); RBC 3.46 m/uL (3.80-5.40); RDW 13.4 % (11.5-15.5); WBC 16.9 k/uL (3.8-10.6)
--- NOTE | 2022-09-18 09:23 | P.HPIM ---
History of Present Illness This is a pleasant 72 years old female with multiple medical problems including COPD, hypertension, as her arthritis and lung cancer, bullous pemphigoid, she was recently at inpatient rehab at [facility] secondary to traumatic subarachnoid hemorrhage with loss of consciousness for 30 minutes or less and hemiplegia and hemiparesis following cerebral infarction affecting the right dominant site with aphasia and difficulty walking, she was stabilized on discharge but yesterday she went to the emergency room complaining of from dyspnea and hemoptysis. Patient also she had CTA of the chest with IV contrast because of shortness of breath and coughing up of blood and shows no pulmonary embolism but left lower lobe mass suspicious for neoplasm and there is possible invasion of the left lateral wall of the descending thoracic aorta. No evidence of hemorrhage at this time (CT Done 09/16) On admission patient was hypoxic on 10 L nonrebreather and hypotensive tachycardic. Currently patient saturating 92% on 6 L oxygen via nasal cannula area she slightly tachycardic, and 102-105, afebrile. Blood pressure 156/96. Patient has mild leukocytosis at 11,000, rest of CBC, INR, BMP is unremarkable. chest x-ray: Mild left lower lobe interstitial infiltrates increase compared to old exam Patient is ex-smoker, she smoked for 30 years and quit about 10 years ago, no alcohol or illicit drug Review of Systems Review of systems CONSTITUTIONAL: No fever, no malaise, no fatigue. HEENT: No recent visual problems or hearing problems. Denied any sore throat. CARDIOVASCULAR: No orthopnea, PND, no palpitations, no syncope. PULMONARY: No chest wall tenderness, no upper respiratory symptoms or sneezing . GASTROINTESTINAL: no nausea, no vomiting, . Normoactive bowel sounds. NEUROLOGICAL: No headaches, no weakness, no numbness. HEMATOLOGICAL: Denies any bleeding or petechiae. GENITOURINARY: Denies any burning micturition, frequency, or urgency. MUSCULOSKELETAL/RHEUMATOLOGICAL: Denies any joint pain, swelling, or any muscle pain. ENDOCRINE: Denies any polyuria or polydipsia. Past Medical History Past Medical History: Chest Pain / Angina, COPD, Hypertension, Osteoarthritis (OA) Additional Past Medical History / Comment(s): not currently taking any medication for blood pressure History of Any Multi-Drug Resistant Organisms: None Reported Past Surgical History: Appendectomy, Cholecystectomy, Heart Catheterization Additional Past Surgical History / Comment(s): duodenal ulcer surg., polyps removed from throat Past Anesthesia/Blood Transfusion Reactions: No Reported Reaction Past Psychological History: No Psychological Hx Reported Smoking Status: Never smoker Past Alcohol Use History: Occasional Past Drug Use History: Marijuana - Past Family History Mother Family Medical History: No Reported History Father Family Medical History: Cancer Medications and Allergies Home Medications Medication Instructions Recorded Confirmed Type Cholecalciferol [Vitamin D3] 1,000 unit PO DAILY 01/24/17 01/24/17 History hydrOXYzine HCL [Atarax] 25 mg PO QID PRN #30 tab 10/01/20 Rx hydrOXYzine pamoate [Vistaril] 25 mg PO Q6H PRN #30 capsule 10/01/20 Rx Allergies Allergy/AdvReac Type Severity Reaction Status Date / Time cortisone [Cortisone] Allergy Swelling Verified 08/06/22 14:23 Iodinated Contrast Media Allergy Rash/Hives Verified 08/06/22 14:23 [Iodinated Contrast Media - Oral and] prednisone Allergy Swelling Verified 08/06/22 14:23 Physical Exam Vitals: Vital Signs Temp Pulse Resp BP Pulse Ox 09/18/22 08:45 106 H 09/18/22 08:30 102 H 09/18/22 08:22 105 H 92 L 09/18/22 07:51 91 09/18/22 07:48 92 18 156/96 99 09/18/22 06:44 17 09/18/22 06:42 111 H 17 140/86 100 09/18/22 06:30 117 H 09/18/22 06:22 112 H 09/18/22 06:00 110 H 107/65 99 09/18/22 05:57 95/65 09/18/22 05:56 116 H 70/28 97 09/18/22 05:51 70/49 09/18/22 05:47 97.4 F L 129 H 28 H 100/65 97 Intake and Output 09/17/22 09/18/22 09/18/22 22:59 06:59 14:59 Other: Weight 68.039 kg -GENERAL: The patient is alert and oriented x3, not in any acute distress. Looks weak as generalized weakness HEENT: Pupils are round and equally reacting to light. EOMI. No scleral icterus. No conjunctival pallor. Normocephalic, atraumatic. No pharyngeal erythema. No thyromegaly. CARDIOVASCULAR: S1 and S2 present. No murmurs, rubs, or gallops. PULMONARY: Chest is clear to auscultation, no wheezing or crackles. ABDOMEN: Soft, nontender, nondistended, normoactive bowel sounds. No palpable organomegaly. MUSCULOSKELETAL: No joint swelling or deformity. EXTREMITIES: No cyanosis, clubbing, or pedal edema. NEUROLOGICAL: Gross neurological examination did not reveal any focal deficits. SKIN: No rashes. no petechiae. Results CBC & Chem 7: 09/18/22 05:57 09/18/22 05:57 Labs: Abnormal Lab Results - Last 24 Hours (Table) 09/18/22 09/18/22 09/18/22 Range/Units 05:57 05:57 06:20 WBC 11.0 H (3.8-10.6) k/uL RBC 3.78 L (3.80-5.40) m/uL Plt Count 621 H D (150-450) k/uL Neutrophils # 8.3 H (1.3-7.7) k/uL Sodium 133 L (137-145) mmol/L Carbon Dioxide 20 L (22-30) mmol/L Glucose 157 H (74-99) mg/dL Plasma Lactic Acid Norm 2.3 H* (0.7-2.0) mmol/L Magnesium 1.2 L (1.6-2.3) mg/dL Alkaline Phosphatase 147 H (38-126) U/L Total Protein 5.7 L (6.3-8.2) g/dL Albumin 2.8 L (3.5-5.0) g/dL Assessment and Plan Assessment: Left lower lobe lung mass 0.2 x 4.5 cm directly adjacent to the descending thoracic aorta, suspicious for neoplasm with invasion to the left lateral wall of the descending thoracic aorta. No lymphadenopathy Mild abdominal pain and diarrhea, rule out C. 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 Continue same treatment. Continue with symptomatic treatment. Resume home medication. Monitor labs and vitals. DVT and GI prophylaxis. Further recommendations as per clinical course of the patient DVT prophylaxis: no Subcutaneous heparin for hemoptysis GI Prophylaxis: Ppi PT/OT: Deferred Prognosis is guarded
--- NOTE | 2022-09-18 10:30 | P.CNPUL ---
History of Present Illness Consult date: 09/18/22 Requesting physician: Rex Bergeron Reason for consult: dyspnea, cough, COPD, hypoxemia, lung mass, abnormal CXR/CT Chief complaint: Shortness of breath and hemoptysis. Abnormal computed tomography scan. History of present illness: Pulmonary consult dated 09/18/2022. This is a 72-year-old female that we see in the emergency room. Her primary care physician is Dr. Souza. The patient was recently at [facility], for hemoptysis. There she apparently was evaluated, had a chest x-ray and CAT scan, and was discharged. Apparently the CAT scan according to the primary service shows a lung mass, and the left lower lobe. Currently, she is on 6 L of oxygen. She was a smoker for 30+ years. 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 She was in rehab subsequent to that. She apparently has a history of primarily hyperlipidemia. For that she is on Lipitor. She was seen in the emergency department. There was a basin of Kleenex, with bright red blood, presumably, from her coughing up blood. We did speak to her today about doing a bronchoscopy. White count is 16.9, hemoglobin is 10.4, hematocrit 30.9, platelet count 556,000. Coagulation studies were normal. Sodium 133, potassium 3.7, chlorides 103, CO2 20, BUN 10, creatinine 0.62. The rest of the labs are reviewed. Lactic acid was 2.3. We did not have the ability to look at the computed tomography scan done of the outside hospital. Review of Systems REVIEW OF SYSTEMS: CONSTITUTIONAL: [Negative.] NEUROLOGIC: [ Negative.] HEENT: [ Negative.] CARDIAC: [Negative.] PULMONARY: Shortness of breath, cough, and hemoptysis. GI: [Negative.] : [Negative.] RHEUMATOLOGIC: [ Negative.] IMMUNOLOGIC: [ Negative.] ENDOCRINE: [Negative. ] DERMATOLOGIC: [Negative.] Past Medical History Past Medical History: Chest Pain / Angina, COPD, Hypertension, Osteoarthritis (OA) Additional Past Medical History / Comment(s): not currently taking any medication for blood pressure History of Any Multi-Drug Resistant Organisms: None Reported Past Surgical History: Appendectomy, Cholecystectomy, Heart Catheterization Additional Past Surgical History / Comment(s): duodenal ulcer surg., polyps removed from throat Past Anesthesia/Blood Transfusion Reactions: No Reported Reaction Past Psychological History: No Psychological Hx Reported Smoking Status: Never smoker Past Alcohol Use History: Occasional Past Drug Use History: Marijuana - Past Family History Mother Family Medical History: No Reported History Father Family Medical History: Cancer Medications and Allergies Home Medications Medication Instructions Recorded Confirmed Type Acetaminophen Tab [Tylenol Tab] 1,000 mg PO Q6H PRN 09/18/22 09/18/22 History Atorvastatin [Lipitor] 80 mg PO HS 09/18/22 09/18/22 History bisacodyL [Bisacodyl] 5 mg PO DAILY PRN 09/18/22 09/18/22 History hydrOXYzine HCL [Atarax] 10 mg PO BID PRN 09/18/22 09/18/22 History polyethylene glycoL 3350 [Miralax] 17 gm PO DAILY 09/18/22 09/18/22 History Allergies Allergy/AdvReac Type Severity Reaction Status Date / Time cortisone [Cortisone] Allergy Swelling Verified 09/18/22 09:46 Iodinated Contrast Media Allergy Rash/Hives Verified 09/18/22 09:46 [Iodinated Contrast Media - Oral and] prednisone Allergy Swelling Verified 09/18/22 09:46 Physical Exam Osteopathic Statement: *. No significant issues noted on an osteopathic structural exam other than those noted in the History and Physical/Consult. Vitals: Vital Signs Temp Pulse Resp BP Pulse Ox 09/18/22 09:03 103 H 09/18/22 08:57 102 H 18 177/86 98 09/18/22 08:45 106 H 09/18/22 08:30 102 H 09/18/22 08:22 105 H 92 L 09/18/22 07:51 91 09/18/22 07:48 92 18 156/96 99 09/18/22 06:44 17 09/18/22 06:42 111 H 17 140/86 100 09/18/22 06:30 117 H 09/18/22 06:22 112 H 09/18/22 06:00 110 H 107/65 99 09/18/22 05:57 95/65 09/18/22 05:56 116 H 70/28 97 09/18/22 05:51 70/49 09/18/22 05:47 97.4 F L 129 H 28 H 100/65 97 Intake and Output 09/17/22 09/18/22 09/18/22 22:59 06:59 14:59 Other: Weight 68.039 kg Mild respiratory distress, oriented 3. Frequent cough. HEENT examination is grossly unremarkable. Neck supple. Full range of motion. No adenopathy thyromegaly or neck vein distention. Cardiovascular examination reveals regular rhythm rate. S1-S2 normal. No S3 or S4. No discernible murmur noted. Heart sounds are distant. Heart rate 103 bpm. Lungs reveal scattered bilateral rhonchi. Breath sounds equal. No wheezes. No crackles. Abdomen soft bowel sounds are heard. No masses or tenderness. Extremities are intact. No cyanosis clubbing or edema. Skin is without rash or lesion. Neurologic examination is brief but nonfocal. Results - Laboratory Findings CBC and BMP: 09/18/22 08:57 09/18/22 05:57 PT/INR, D-dimer PT 10.7 sec (9.0-12.0) 09/18/22 05:57 INR 1.0 (<1.2) 09/18/22 05:57 Abnormal lab findings: Abnormal Labs 09/18/22 09/18/22 09/18/22 05:57 05:57 06:20 WBC 11.0 H RBC 3.78 L Hgb Hct Plt Count 621 H D Neutrophils # 8.3 H Lymphocytes # Sodium 133 L Carbon Dioxide 20 L Glucose 157 H Plasma Lactic Acid Norm 2.3 H* Magnesium 1.2 L Alkaline Phosphatase 147 H Total Protein 5.7 L Albumin 2.8 L 09/18/22 08:57 WBC 16.9 H RBC 3.46 L Hgb 10.4 L Hct 30.9 L Plt Count 556 H Neutrophils # 15.0 H Lymphocytes # 0.8 L Sodium Carbon Dioxide Glucose Plasma Lactic Acid Norm Magnesium Alkaline Phosphatase Total Protein Albumin - Diagnostic Findings Chest x-ray: image reviewed Assessment and Plan Assessment: Acute hemoptysis, with a possible mass, left lower lobe, based on a computed tomography scan done at [facility]. History of hyperlipidemia. History of previous tobacco use for 30+ years. Plan: Plan dated 09/18/2022. Currently, the patient is getting breathing treatments, and also some Zofran, and something for pain. She is also getting something for gastroesophageal reflux disease/GI prophylaxis. The patient will undergo bronchoscopy and airway examination later today. If there is a mass, she may need a biopsy. Additional recommendations we will alerted about the abnormal computed tomography scan by the hospitalist service, was able to obtain the results of the computed tomography scan done at the outside hospital. Time with Patient: Greater than 30
[2022-09-18 11:44] LABS: Basophils % (A) 0 %; Eosinophils # (A) 0.2 k/uL (0-0.7); Eosinophils % (A) 1 %; HCT 31.6 % (34.0-46.0); HGB 10.4 gm/dL (11.4-16.0); Hypochromasia Slight; Lymphocytes # (A) 0.9 k/uL (1.0-4.8); Lymphocytes % (A) 5 %; MCH 29.9 pg (25.0-35.0); MCHC 32.9 g/dL (31.0-37.0); MCV 90.8 fL (80.0-100.0); Mean Platelet Volume 8.6; Monocytes # (A) 0.7 k/uL (0-1.0); Monocytes % (A) 4 %; Neutrophils # (A) 15.8 k/uL (1.3-7.7); Neutrophils % (A) 89 %; Platelet Count 587 k/uL (150-450); RBC 3.48 m/uL (3.80-5.40); RDW 13.8 % (11.5-15.5); WBC 17.8 k/uL (3.8-10.6)
[2022-09-18] MEDS ORDERED: TRANEXAMIC ACID 1,000 MG/10 ML VIAL INHALATION STA (13:56)
[2022-09-18] MEDS ORDERED: MAGNESIUM SULFATE SYG 4.06 MEQ/ML SYRINGE ONE (14:00)
[2022-09-18] MEDS ORDERED: EPINEPHrine 10 ML SYRINGE (0.1 MG/ML) ONE (14:00)
[2022-09-18] MEDS ORDERED: SODIUM BICARB 8.4% 50 ML SYR (1 MEQ/ML) ONE (14:00)
[2022-09-18] MEDS ORDERED: CALCIUM CHLORIDE 100 MG/ML 10 ML SYRINGE ONE (14:00)
[2022-09-18 14:02] LABS: Glucose,Whole Blood 146 mg/dL (70-110)
--- NOTE | 2022-09-18 14:27 | P.GSCN ---
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 Most of the HPI at this time is obtained from chart as emergency team was called on patient for declining status. Patient apparently recently had a CT angiogram of the chest done 09/16/2022 at outside facility [facility] to rule out PE, that had reported a left lower lobe lung Mass. 0.2 x 4.5 cm adjacent to the descending thoracic aorta, suspicious for neoplasm adjacent to left lateral wall of the descending thoracic aorta. No lymphadenopathy. Patient presented to the emergency department with shortness of breath and hemoptysis. Vascular surgery was consulted related to tumors proximity to the aorta. Labs WBC 17.8 hemoglobin 10.4 hematocrit 31 platelet count 587,000 PT 10.7 INR 1.0 PTT 23 sodium 133 potassium 3.7 BUN 10 creatinine 0.6 glucose 157 magnesium 1.2 total bilirubin 0.8 AST 22 ALT 13 alk phos 147 Chest x-ray: Mild left lower lobe interstitial infiltrate increase compared to old exam. No heart failure. Review of Systems ROS unobtainable: due to mental status Past Medical History Past Medical History: Chest Pain / Angina, COPD, Hypertension, Osteoarthritis (OA) Additional Past Medical History / Comment(s): not currently taking any medication for blood pressure History of Any Multi-Drug Resistant Organisms: None Reported Past Surgical History: Appendectomy, Cholecystectomy, Heart Catheterization Additional Past Surgical History / Comment(s): duodenal ulcer surg., polyps epifanio zackery from throat Past Anesthesia/Blood Transfusion Reactions: No Reported Reaction Past Psychological History: No Psychological Hx Reported Smoking Status: Never smoker Past Alcohol Use History: Occasional Past Drug Use History: Marijuana - Past Family History Mother Family Medical History: No Reported History Father Family Medical History: Cancer Medications and Allergies Home Medications Medication Instructions Recorded Confirmed Type Acetaminophen Tab [Tylenol Tab] 1,000 mg PO Q6H PRN 09/18/22 09/18/22 History Atorvastatin [Lipitor] 80 mg PO HS 09/18/22 09/18/22 History RX: bisacodyL [Bisacodyl] 5 mg PO DAILY PRN 09/18/22 09/18/22 History hydrOXYzine HCL [Atarax] 10 mg PO BID PRN 09/18/22 09/18/22 History polyethylene glycoL 3350 [Miralax] 17 gm PO DAILY 09/18/22 09/18/22 History Allergies Allergy/AdvReac Type Severity Reaction Status Date / Time cortisone [Cortisone] Allergy Swelling Verified 09/18/22 09:46 Iodinated Contrast Media Allergy Rash/Hives Verified 09/18/22 09:46 [Iodinated Contrast Media - Oral and] prednisone Allergy Swelling Verified 09/18/22 09:46 Surgical - Exam Vital Signs Temp Pulse Resp BP Pulse Ox 97.4 F L 129 H 28 H 100/65 97 09/18/22 05:47 09/18/22 05:47 09/18/22 05:47 09/18/22 05:47 09/18/22 05:47 General appearance: The patient is alert, appears in mild distress. Being moved to the trauma 1, resuscitation room. Rest of examination deferred at this time due to A-team Results - Labs 09/18/22 11:18 09/18/22 05:57 Abnormal Lab Results - Last 24 Hours (Table) 09/18/22 09/18/22 09/18/22 Range/Units 05:50 05:57 05:57 WBC 11.0 H (3.8-10.6) k/uL RBC 3.78 L (3.80-5.40) m/uL Hgb (11.4-16.0) gm/dL Hct (34.0-46.0) % Plt Count 621 H D (150-450) k/uL Neutrophils # 8.3 H (1.3-7.7) k/uL Lymphocytes # (1.0-4.8) k/uL Sodium 133 L (137-145) mmol/L Carbon Dioxide 20 L (22-30) mmol/L Glucose 157 H (74-99) mg/dL POC Glucose (mg/dL) (70-110) mg/dL Plasma Lactic Acid Norm (0.7-2.0) mmol/L Magnesium 1.2 L (1.6-2.3) mg/dL Alkaline Phosphatase 147 H (38-126) U/L Total Protein 5.7 L (6.3-8.2) g/dL Albumin 2.8 L (3.5-5.0) g/dL Crossmatch See Detail 09/18/22 09/18/22 09/18/22 Range/Units 06:20 08:57 11:18 WBC 16.9 H 17.8 H (3.8-10.6) k/uL RBC 3.46 L 3.48 L (3.80-5.40) m/uL Hgb 10.4 L 10.4 L (11.4-16.0) gm/dL Hct 30.9 L 31.6 L (34.0-46.0) % Plt Count 556 H 587 H (150-450) k/uL Neutrophils # 15.0 H 15.8 H (1.3-7.7) k/uL Lymphocytes # 0.8 L 0.9 L (1.0-4.8) k/uL Sodium (137-145) mmol/L Carbon Dioxide (22-30) mmol/L Glucose (74-99) mg/dL POC Glucose (mg/dL) (70-110) mg/dL Plasma Lactic Acid Norm 2.3 H* (0.7-2.0) mmol/L Magnesium (1.6-2.3) mg/dL Alkaline Phosphatase (38-126) U/L Total Protein (6.3-8.2) g/dL Albumin (3.5-5.0) g/dL Crossmatch 09/18/22 Range/Units 14:01 WBC (3.8-10.6) k/uL RBC (3.80-5.40) m/uL Hgb (11.4-16.0) gm/dL Hct (34.0-46.0) % Plt Count (150-450) k/uL Neutrophils # (1.3-7.7) k/uL Lymphocytes # (1.0-4.8) k/uL Sodium (137-145) mmol/L Carbon Dioxide (22-30) mmol/L Glucose (74-99) mg/dL POC Glucose (mg/dL) 146 H (70-110) mg/dL Plasma Lactic Acid Norm (0.7-2.0) mmol/L Magnesium (1.6-2.3) mg/dL Alkaline Phosphatase (38-126) U/L Total Protein (6.3-8.2) g/dL Albumin (3.5-5.0) g/dL Crossmatch Diabetes panel 09/18/22 Range/Units 05:57 Sodium 133 L (137-145) mmol/L Potassium 3.7 (3.5-5.1) mmol/L Chloride 103 (98-107) mmol/L Carbon Dioxide 20 L (22-30) mmol/L BUN 10 (7-17) mg/dL Creatinine 0.62 (0.52-1.04) mg/dL Glucose 157 H (74-99) mg/dL Calcium 8.7 (8.4-10.2) mg/dL AST 22 (14-36) U/L ALT 13 (4-34) U/L Alkaline Phosphatase 147 H (38-126) U/L Total Protein 5.7 L (6.3-8.2) g/dL Albumin 2.8 L (3.5-5.0) g/dL Calcium panel 09/18/22 Range/Units 05:57 Calcium 8.7 (8.4-10.2) mg/dL Albumin 2.8 L (3.5-5.0) g/dL Pituitary panel 09/18/22 Range/Units 05:57 Sodium 133 L (137-145) mmol/L Potassium 3.7 (3.5-5.1) mmol/L Chloride 103 (98-107) mmol/L Carbon Dioxide 20 L (22-30) mmol/L BUN 10 (7-17) mg/dL Creatinine 0.62 (0.52-1.04) mg/dL Glucose 157 H (74-99) mg/dL Calcium 8.7 (8.4-10.2) mg/dL Adrenal panel 09/18/22 Range/Units 05:57 Sodium 133 L (137-145) mmol/L Potassium 3.7 (3.5-5.1) mmol/L Chloride 103 (98-107) mmol/L Carbon Dioxide 20 L (22-30) mmol/L BUN 10 (7-17) mg/dL Creatinine 0.62 (0.52-1.04) mg/dL Glucose 157 H (74-99) mg/dL Calcium 8.7 (8.4-10.2) mg/dL Total Bilirubin 0.8 (0.2-1.3) mg/dL AST 22 (14-36) U/L ALT 13 (4-34) U/L Alkaline Phosphatase 147 H (38-126) U/L Total Protein 5.7 L (6.3-8.2) g/dL Albumin 2.8 L (3.5-5.0) g/dL Assessment and Plan Assessment: 1. Left lower lobe lung mass adjacent to descending thoracic aorta, CTA done at [facility] 2. Acute hemoptysis likely related to above 3. Shortness of breath 4. History of tobacco use 30+ years Plan: 1. Continue symptomatic and supportive measures 2. Recommend transfer to tertiary center 3. Would recommend consultation to cardiothoracic surgery 4. Further recommendations forthcoming from vascular surgeon Thank you for this consultation, we will continue to follow. The impression and plan of care has been dictated as directed. Dr. Keating I performed a history and examination of this patient, discussed the same with the dictator. I agree with the dictator's note ,documented as a scribe. Any additional findings or plans will be noted At this time, unable to visualize CT. It was a r/o PE with pulm arterial phase. Would need CTA Chest with aortic contrast for eval fully for invasion to aortic wall. Hgb Currently stable from AM draw. Would again recommend CVT eval. Would need transfer to tertiary center for thoracic aortic stent graft as a temporizing measure If there is aortic involvement as they are not available at this institution. This was all conveyed to the primary team.
[2022-09-18 15:05] LABS: ABG Base Excess -18.6 mmol/L; ABG HCO3 13 mmol/L (21-25); ABG Oxygen Saturation 99.6 % (94-97); ABG PCO2 50 mmHg (35-45); ABG PO2 336 mmHg (83-108); ABG TCO2 14 mmol/L (19-24); Allen Test Performed? Yes
[2022-09-18 15:06] LABS: ABG PH 7.01 (7.35-7.45)
[2022-09-18] MEDS ORDERED: SODIUM BICARB 8.4% 50 ML SYR (1 MEQ/ML) IV STA (15:15)
--- NOTE | 2022-09-18 15:16 | XR ---
EXAMINATION TYPE: XR chest 1V portable DATE OF EXAM: 09/18/2022 CLINICAL HISTORY: Difficulty breathing had to be intubated. TECHNIQUE: Single AP portable supine view of the chest is obtained. COMPARISON: Chest x-ray from earlier today and older studies FINDINGS: There is minimal endotracheal tube terminating below the clavicles but roughly approximate 2.0 cm above the henrry. Overlying EKG leads are again seen. Background chronic emphysematous change redemonstrated. Right lung remains clear. There is new superi or lateral left curvilinear fluid collection. There is left apical consolidation. There is central le ft lung consolidation with midlung and lower lung extension. Patient more rotated to the right with s uggestion of some right-sided volume loss also. Cardiac silhouette size stable and within normal limi ts. Surgical clips near diaphragmatic hiatus centrally are redemonstrated. Osseous structures remain intact. IMPRESSION: 1. New endotracheal tube slightly low in position advise pulling back 2.0 cm. 2. New small to moderate size nonsimple left-sided pleural fluid collection. New multifocal left lung consolidation and/or atelectasis. Suggestion of new right-sided volume loss. Correlate clinically an d follow-up study advised.
[2022-09-18 15:27] LABS: Glucose,Whole Blood 205 mg/dL (70-110)
[2022-09-18] MEDS ORDERED: propofoL 100 ML IV ONE (15:27)
[2022-09-18] MEDS ORDERED: NOREPINEPHRINE 4 MG in SODIUM CHLORIDE 0.9% 250 ML IV SCH (15:45)
[2022-09-18] MEDS ORDERED: CISATRACURIUM 2 MG/ML 5 ML VIAL IV ONE (15:48)
--- NOTE | 2022-09-18 15:51 | P.EN ---
CODE BLUE Indication: unresponsive Arrived on Scene to find: Patient being intubated by Dr. Sniger with copious amounts of blood in ET tube Initial Rhythm: Patient lost pulses and was in PEA Code Course: Initial code course CPR started on 1408 (patient previously recieved 0.5 of epi. and pulses started to weaken at 1406) Patient received 3 doses of epinephrine, 1 amp of bicarb, 2.5 mg of magnesium. And one of calcium given Patient had return of spontaneous circulation at 1418 with a junctional rhythm noted. She has slightly low blood pressure and therefore was given an additional half an amp of epinephrine. CPR reinitiated at 1421 Patient received epi 2, 2.5 g of magnesium, 1 amp of bicarb, 1 g of calcium gluconate and was begun on levothyroxine. She had return of spontaneous circulation at 1433 with cardiac movement noted on ultrasound. During the process the code patient received 2 units of blood. After ROSC patient had an additional amp of bicarbonate given. Total Down Time: 22 minutes Vital signs reviewed General: ill appearing, maximal distress Cardiovascular: S1S2 irreg, no murmur Lungs: Course bs bilateral Ext: no gross muscle atrophy, no edema, no contractures, + Dusky Neuro: pupil equil non reactive, no withdrawal to pain Psych: nonresponsive without sedation Assessment: Aborted sudden cardiac Severe metabolic acidosis Anemia Hemoptysis Probable Left lower lobe mass probable GI bleed Plan: This with Dr. Cordon appeared transitioned to ICU. An additional 2 units of packed red blood cells. Nursing to draw CBC, CMP, mag, phosphorus, PT, PTT, and troponin EKG obtained which is not showing any signs of myocardial infarction ABG reviewed which demonstrated metabolic acidosis and 2 additional amps of bicarbonate given Levo Disposition: ICU Notified: Dr. Julius Espinosa Sheet- declined to update family - radha updated. A Total of 92 minutes of critical care time was spent on the complex care of this patient.
[2022-09-18] MEDS ORDERED: Phosphorus Replacement Protoco 1 EACH MISC MISCELLANE PRN (16:25)
[2022-09-18] MEDS ORDERED: Magnesium Replacement Protocol 1 EACH MISC MISCELLANE PRN (16:25)
[2022-09-18] MEDS ORDERED: ARTIFICIAL TEARS-HYPROMELLOSE DROPS 15 ML BTL BOTH EYES PRN (16:25)
[2022-09-18] MEDS ORDERED: Potassium Replacement Protocol 1 EACH MISC MISCELLANE PRN (16:25)
[2022-09-18 16:28] LABS: Basophils # (A) 0.1 k/uL (0-0.2); Basophils % (A) 0 %; Eosinophils # (A) 0.1 k/uL (0-0.7); Eosinophils % (A) 0 %; HCT 26.8 % (34.0-46.0); Hypochromasia Marked; Lymphocytes # (A) 0.8 k/uL (1.0-4.8); Lymphocytes % (A) 6 %; MCH 29.1 pg (25.0-35.0); MCHC 30.6 g/dL (31.0-37.0); Mean Platelet Volume 9.1; Monocytes # (A) 0.7 k/uL (0-1.0); Monocytes % (A) 5 %; Neutrophils # (A) 12.3 k/uL (1.3-7.7); Neutrophils % (A) 88 %; Platelet Count 285 k/uL (150-450); RBC 2.82 m/uL (3.80-5.40); RDW 14.7 % (11.5-15.5); WBC 13.9 k/uL (3.8-10.6)
[2022-09-18 16:39] LABS: HGB 8.2 gm/dL (11.4-16.0)
[2022-09-18 16:42] LABS: Albumin 1.5 g/dL (3.5-5.0); Total Bilirubin 0.3 mg/dL (0.2-1.3); Total Protein 3.1 g/dL (6.3-8.2)
[2022-09-18 16:43] LABS: Calcium 8.8 mg/dL (8.4-10.2); Magnesium 3.2 mg/dL (1.6-2.3); Potassium 4.7 mmol/L (3.5-5.1)
[2022-09-18 16:48] LABS: INR 1.3 (<1.2); Prothrombin Time 13.6 sec (9.0-12.0)
[2022-09-18 16:58] LABS: Phosphorus 9.4 mg/dL (2.5-4.5)
[2022-09-18] MEDS ORDERED: VASOPRESSIN 20 UNIT in SODIUM CHLORIDE 0.9% 50 ML IV SCH (17:00)
--- NOTE | 2022-09-18 17:01 | P.GSCN ---
History of Present Illness Consult date: 09/18/22 Reason for Consult: Left lower lobe mass suspicious for neoplasm with possible early invasion of the left lateral wall of the descending thoracic aorta Requesting physician: Rex E Sheet History of present illness: This is a 72-year-old female patient who follows with Dr. Donta Souza on an outpatient basis for her primary care. She has a past medical history significant for hyperlipidemia, recent CVA with right-sided weakness, according to the patient's possible COVID-19 recently within the last 30 days, remote history of nicotine dependence, quit smoking 10 years ago, constipation and cataracts. The patient is currently intubated with mechanical ventilator support and her history was obtained from her Rick. Florez reports on 08/06/2022 the patient was walking into their house and passed out. 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 Subsequently due to the findings on the computed tomography scan of the brain the patient was transferred to [facility] for further evaluation and treatment recommendations. According to the patient's she was diagnosed with a CVA and had developed some right-sided weakness. The patient was discharged from [facility] shortly before 2021 and was disc harged to [facility] rehab. Shortly after her discharge from [facility] rehab the patient developed some constipation due to her pain medication oxycodone and was treated in the emergency department for constipation at [facility] 2. The patient has been reports that on September the patient developed some hemoptysis with jj red blood. The hemoptysis progressed and became more frequent over the next couple of days and she presented to the emergency department at [facility] on 09/16/2022 with the above mentioned complaints. She underwent a computed tomography scan of the chest to rule out pulmonary embolism. The CT scan report shows no evidence for pulmonary embolism, it demonstrated a left lower lobe mass suspicious for neoplasm with possible early invasion of the left lateral wall of the descending thoracic aorta. There was no evidence for hemorrhage at that time. According to the patient's she was discharged from the emergency department with an inhaler and a treatment for oral steroids for bronchitis and further outpatient workup was scheduled. The patient's hemoptysis over the next couple of days became more frequent and the amount of hemoptysis became worse with more flank blood with coughing. Subsequently, due to the progressive hemoptysis the patient presented to the emergency department here at [facility] this morning for further evaluation and treatment recommendations. The patient's reports that she denied any complaints shortness of breath, nausea, vomiting, hematemesis, headache, lightheadedness, fever, chills, palpitations, presyncope or syncope. He did report although that she was complaining of some pain between her shoulder blad es at times. Initial laboratory results showed a WBC count of 11.0, hemoglobin 11.5, hematocrit 34.3, platelets 621, PT 10.7, INR 1.0, PTT 23.8, sodium 133, potassium 3.7, chloride 103, CO2 20, BUN 10, creatinine 0.62, glucose 157, plasma lactic acid venous 2.3, calcium 8.7, magnesium 1.2, AST 22, ALT 13, alkaline phosphatase 147 and troponin less than 0.012. A chest x-ray was completed on admission which showed mild left lower lobe interstitial infiltrate increased compared to old exam, no heart failure. While in the emergency department the patient went into cardiopulmonary arrest with ACLS protocol initiated and return of spontaneous circulation. She currently remains intubated with mechanical ventilator support. Cardiothoracic surgery was consulted for evaluation of left lower lobe lung mass with suspicion of invasion of the left lateral wall of the descending thoracic aorta. Review of Systems A 14 point review of system could not obtained at this time as the patient is intubated with mechanical ventilator support. Past Medical History Past Medical History: Chest Pain / Angina, COPD, CVA/TIA (Recent CVA with right- sided weakness), Hyperlipidemia, Osteoarthritis (OA) Additional Past Medical History / Comment(s): not currently taking any medication for blood pressure, constipation, according to the patient's while at [facility] was possibly diagnosed with COVID-19. History of Any Multi-Drug Resistant Organisms: None Reported Past Surgical History: Appendectomy, Cholecystectomy, Heart Catheterization Additional Past Surgical History / Comment(s): duodenal ulcer surg., polyps removed from throat Past Anesthesia/Blood Transfusion Reactions: No Reported Reaction Past Psychological History: No Psychological Hx Reported Smoking Status: Former smoker Past Alcohol Use History: Occasional Past Drug Use History: Marijuana - Past Family History Mother Family Medical History: No Reported History Father Family Medical History: Cancer Medications and Allergies Home Medications Medication Instructions Recorded Confirmed Type Acetaminophen Tab [Tylenol Tab] 1,000 mg PO Q6H PRN 09/18/22 09/18/22 History Atorvastatin [Lipitor] 80 mg PO HS 09/18/22 09/18/22 History bisacodyL [Bisacodyl] 5 mg PO DAILY PRN 09/18/22 09/18/22 History hydrOXYzine HCL [Atarax] 10 mg PO BID PRN 09/18/22 09/18/22 History polyethylene glycoL 3350 [Miralax] 17 gm PO DAILY 09/18/22 09/18/22 History Allergies Allergy/AdvReac Type Severity Reaction Status Date / Time cortisone [Cortisone] Allergy Swelling Verified 09/18/22 09:46 Iodinated Contrast Media Allergy Rash/Hives Verified 09/18/22 09:46 [Iodinated Contrast Media - Oral and] prednisone Allergy Swelling Verified 09/18/22 09:46 Surgical - Exam Vital Signs Temp Pulse Resp BP Pulse Ox 97.4 F L 129 H 28 H 100/65 97 09/18/22 05:47 09/18/22 05:47 09/18/22 05:47 09/18/22 05:47 09/18/22 05:47 - General Patient is laying in bed in the intensive care unit, is intubated with mechanical ventilator support. well developed, well nourished, no distress, chronically ill - Eyes PERRL, normal ocular movement, no pale, no icteric - ENT normal pinna, normal nares, normal mucosa, no hearing loss, no congestion - Neck no masses, no bruits, trachea midline, no venous distension - Respiratory Sounds are essentially clear throughout, diminished to her left lower lobe. No wheezes, rhonchi or crackles. Respirations are symmetrical and nonlabored with mechanical ventilator support. - Cardiovascular Regular rhythm and tachycardic rate. S1 and S2 present, negative for S3, gallop or murmur. - Abdomen Abdomen is soft, and nondistended. Bowel sounds are present all 4 abdominal quadrants. No guarding or rigidity. Loose bowel movement currently. - Genitourinary Keating catheter in place for accurate I's and O's. - Rectum Deferred - Integumentary no rash, no growths, no abnormal pigmentation - Neurologic Unable to accurately assess at this time as the patient is intubated with me chanical ventilator support. - Musculoskeletal Unable to accurately assess at this time as the patient is intubated with mechanical ventilator support. History of right-sided weakness - Psychiatric Unable to accurately assess at this time as the patient is intubated with mechanical ventilator support. Results - Labs 09/18/22 11:18 09/18/22 05:57 Abnormal Lab Results - Last 24 Hours (Table) 09/18/22 09/18/22 09/18/22 Range/Units 05:50 05:57 05:57 WBC 11.0 H (3.8-10.6) k/uL RBC 3.78 L (3.80-5.40) m/uL Hgb (11.4-16.0) gm/dL Hct (34.0-46.0) % Plt Count 621 H D (150-450) k/uL Neutrophils # 8.3 H (1.3-7.7) k/uL Lymphocytes # (1.0-4.8) k/uL ABG pH (7.35-7.45) ABG pCO2 (35-45) mmHg ABG pO2 (83-108) mmHg ABG HCO3 (21-25) mmol/L ABG Total CO2 (19-24) mmol/L ABG O2 Saturation (94-97) % Sodium 133 L (137-145) mmol/L Carbon Dioxide 20 L (22-30) mmol/L Glucose 157 H (74-99) mg/dL POC Glucose (mg/dL) (70-110) mg/dL Plasma Lactic Acid Norm (0.7-2.0) mmol/L Magnesium 1.2 L (1.6-2.3) mg/dL Alkaline Phosphatase 147 H (38-126) U/L Total Protein 5.7 L (6.3-8.2) g/dL Albumin 2.8 L (3.5-5.0) g/dL Crossmatch See Detail 09/18/22 09/18/22 09/18/22 Range/Units 06:20 08:57 11:18 WBC 16.9 H 17.8 H (3.8-10.6) k/uL RBC 3.46 L 3.48 L (3.80-5.40) m/uL Hgb 10.4 L 10.4 L (11.4-16.0) gm/dL Hct 30.9 L 31.6 L (34.0-46.0) % Plt Count 556 H 587 H (150-450) k/uL Neutrophils # 15.0 H 15.8 H (1.3-7.7) k/uL Lymphocytes # 0.8 L 0.9 L (1.0-4.8) k/uL ABG pH (7.35-7.45) ABG pCO2 (35-45) mmHg ABG pO2 (83-108) mmHg ABG HCO3 (21-25) mmol/L ABG Total CO2 (19-24) mmol/L ABG O2 Saturation (94-97) % Sodium (137-145) mmol/L Carbon Dioxide (22-30) mmol/L Glucose (74-99) mg/dL POC Glucose (mg/dL) (70-110) mg/dL Plasma Lactic Acid Norm 2.3 H* (0.7-2.0) mmol/L Magnesium (1.6-2.3) mg/dL Alkaline Phosphatase (38-126) U/L Total Protein (6.3-8.2) g/dL Albumin (3.5-5.0) g/dL Crossmatch 09/18/22 09/18/22 09/18/22 Range/Units 14:01 15:03 15:26 WBC (3.8-10.6) k/uL RBC (3.80-5.40) m/uL Hgb (11.4-16.0) gm/dL Hct (34.0-46.0) % Plt Count (150-450) k/uL Neutrophils # (1.3-7.7) k/uL Lymphocytes # (1.0-4.8) k/uL ABG pH 7.01 L* (7.35-7.45) ABG pCO2 50 H (35-45) mmHg ABG pO2 336 H (83-108) mmHg ABG HCO3 13 L (21-25) mmol/L ABG Total CO2 14 L (19-24) mmol/L ABG O2 Saturation 99.6 H (94-97) % Sodium (137-145) mmol/L Carbon Dioxide (22-30) mmol/L Glucose (74-99) mg/dL POC Glucose (mg/dL) 146 H 205 H (70-110) mg/dL Plasma Lactic Acid Norm (0.7-2.0) mmol/L Magnesium (1.6-2.3) mg/dL Alkaline Phosphatase (38-126) U/L Total Protein (6.3-8.2) g/dL Albumin (3.5-5.0) g/dL Crossmatch Diabetes panel 09/18/22 Range/Units 05:57 Sodium 133 L (137-145) mmol/L Potassium 3.7 (3.5-5.1) mmol/L Chloride 103 (98-107) mmol/L Carbon Dioxide 20 L (22-30) mmol/L BUN 10 (7-17) mg/dL Creatinine 0.62 (0.52-1.04) mg/dL Glucose 157 H (74-99) mg/dL Calcium 8.7 (8.4-10.2) mg/dL AST 22 (14-36) U/L ALT 13 (4-34) U/L Alkaline Phosphatase 147 H (38-126) U/L Total Protein 5.7 L (6.3-8.2) g/dL Albumin 2.8 L (3.5-5.0) g/dL Calcium panel 09/18/22 Range/Units 05:57 Calcium 8.7 (8.4-10.2) mg/dL Albumin 2.8 L (3.5-5.0) g/dL Pituitary panel 09/18/22 Range/Units 05:57 Sodium 133 L (137-145) mmol/L Potassium 3.7 (3.5-5.1) mmol/L Chloride 103 (98-107) mmol/L Carbon Dioxide 20 L (22-30) mmol/L BUN 10 (7-17) mg/dL Creatinine 0.62 (0.52-1.04) mg/dL Glucose 157 H (74-99) mg/dL Calcium 8.7 (8.4-10.2) mg/dL Adrenal panel 09/18/22 Range/Units 05:57 Sodium 133 L (137-145) mmol/L Potassium 3.7 (3.5-5.1) mmol/L Chloride 103 (98-107) mmol/L Carbon Dioxide 20 L (22-30) mmol/L BUN 10 (7-17) mg/dL Creatinine 0.62 (0.52-1.04) mg/dL Glucose 157 H (74-99) mg/dL Calcium 8.7 (8.4-10.2) mg/dL Total Bilirubin 0.8 (0.2-1.3) mg/dL AST 22 (14-36) U/L ALT 13 (4-34) U/L Alkaline Phosphatase 147 H (38-126) U/L Total Protein 5.7 L (6.3-8.2) g/dL Albumin 2.8 L (3.5-5.0) g/dL - Imaging Chest x-ray: report reviewed, image reviewed CT scan - chest: report reviewed Assessment and Plan Assessment: 1. Left lower lobe lung mass adjacent to the descending thoracic aorta, according to the computed tomography scan report from [facility] 2. Acute hemoptysis, likely secondary to above 3. Cardiopulmonary arrest with return of spontaneous circulation with ACLS protocol 4. Recent CVA with right-sided weakness in July 2022 5. Recent COVID-19 infection in July 2022 6. History of recent constipation, secondary to oxycodone 7. History of hyperlipidemia 8. Remote history of nicotine dependence quit smoking around 10 years ago 9. Cataracts to bilateral eyes Plan: The patient was seen and examined at her bedside in the intensive care unit. H er chart and diagnostics were reviewed, her computed tomography scan of her chest report was obtained from [facility]. Her case was discussed in detail with Dr. Santhosh Rizvi from cardiothoracic surgery. At this point no surgical intervention is warranted. Will need further workup from pulmonary medicine with hemoptysis management, will likely need a tissue diagnosis for further treatment recommendations. Medical management other comorbidities per primary care service. Continue supportive measures. More recommendations to follow based on patient's clinical course. The patient's Gautam has been updated on her care. Thank you Dr. Bergeron for this consult and we will look for to working with you in the care of this patient. I have personally seen and examined the patient, performed the documentation and the assessment and plan as written. 30 minutes spent on the visit . Pawan WETZEL
[2022-09-18 18:43] VITALS: BP 55/33; PULSE 0; RESP 0
--- NOTE | 2022-09-18 19:34 | OP ---
OPERATIVE REPORT PROCEDURE: Left subclavian triple-lumen catheter. PREOPERATIVE DIAGNOSES: Hypotension, administration of pressors and monitoring of CVP. POSTOPERATIVE DIAGNOSES: Hypotension, administration of pressors and monitoring of CVP. RENEWALS SPECIALIST: Dr. Rawls. DESCRIPTION OF PROCEDURE: There was informed consent and universal timeout. The patient's procedure took place in the intensive care unit, room 251. TRIPLE LUMEN CATHETER PLACEMENT: Indication: Hemodynamic monitoring/Intravenous access. A time-out was completed verifying correct patient, procedure, site, positioning, and implant(s) or special equipment if applicable. The patient was placed in a dependent position appropriate for triple lumen catheter placement based on the vein to be cannulated. The patient's left shoulder or left neck or left groin was prepped and draped in sterile fashion. 1% Lidocaine was used to anesthetize the surrounding skin area. A triple lumen 9F Cordis catheter was introduced into the left subclavian or internal jugular or common femoral vein using Seldinger technique. The catheter was threaded smoothly over the guide wire and appropriate blood return was obtained. Each lumen of the catheter was evacuated of air and flushed with sterile saline. The catheter was then sutured in place to the skin and a sterile dressing applied. Perfusion to the extremity distal to the point of catheter insertion was checked and found to be adequate. There was good blood return from all 3 ports. The catheter was sutured in place. There was a sterile dressing applied by the nurse. There was no immediate complication. A chest x-ray was ordered to check placement. MMODL / IJN: [id number] /
[2022-09-18] MEDS ORDERED: CHLORHEXIDINE GLUCONATE 15 ML CUP MUCOUS MEM SCH (21:00)
--- NOTE | 2022-09-18 22:24 | P.DS ---
Providers Date of admission: 09/18/22 07:01 Attending physician: Estrellita Mae Consults: 09/18/22 07:01 Consult Physician Routine Consulting Provider: Monet Collins Consult Reason/Comments: lungCA Do you want consulting provider notified?: Yes 09/18/22 10:44 Consult Physician Stat Consulting Provider: Cindy Keating Consult Reason/Comments: tumor close to aorta Do you want consulting provider notified?: Yes 09/18/22 14:41 Consult Physician Urgent Consulting Provider: Juan Naik Consult Reason/Comments: lung mass close to aorta Do you want consulting provider notified?: Yes Primary care physician: Harley Longo [facility] Course: Patient was moved to the ICU with mechanical ventilation and intubated Patient was made no code eventually by critical care team Patient evaluated by cardiothoracic surgery team with no surgical intervention warranted and recommended to continue with medical management Eventually patient at 17:14, please refer to nursing note for more details. Please refer to H&P earlier from today Patient Condition at Discharge: Serious Plan - Discharge Summary New Discharge Prescriptions: No Action hydrOXYzine HCL [Atarax] 10 mg PO BID PRN PRN Reason: Itching bisacodyL [Bisacodyl] 5 mg PO DAILY PRN PRN Reason: Constipation Atorvastatin [Lipitor] 80 mg PO HS polyethylene glycoL 3350 [Miralax] 17 gm PO DAILY Acetaminophen Tab [Tylenol Tab] 1,000 mg PO Q6H PRN PRN Reason: Pain Discharge Medication List Acetaminophen Tab [Tylenol Tab] 1,000 mg PO Q6H PRN 09/18/22 [History] Atorvastatin [Lipitor] 80 mg PO HS 09/18/22 [History] bisacodyL [Bisacodyl] 5 mg PO DAILY PRN 09/18/22 [History] hydrOXYzine HCL [Atarax] 10 mg PO BID PRN 09/18/22 [History] polyethylene glycoL 3350 [Miralax] 17 gm PO DAILY 09/18/22 [History] Follow up Appointment(s)/Referral(s): Donta Souza MD [Primary Care Provider] - 1-2 days Discharge Disposition: - Preliminary Cause of Preliminary Cause of : lung mass with hemoptysis
--- NOTE | 2022-09-23 08:28 | CDI ---
Documentation Clarification Form Date: 09/23/2022 07:57:22 AM From: Kristi Stahl RN, CCDS Phone: Admit Date: 09/18/2022 07:01:00 AM Patient Name: Rhonda Chen Visit Number: [id number] Discharge Date: 09/18/2022 08:26:00 PM ATTENTION: The Clinical Documentation Specialists (CDI) and [facility] Coding Staff appreciate your assistance in clarifying documentation. Please respond to the clarification below the line at the bottom and electronically sign. The CDI & [facility] Coding staff will review the response and follow-up if needed. Please note: Queries are made part of the Legal Health Record. If you have any questions, please contact the author of this message via ITS. Dr. Goodman E Rubio Unspecified anemia is documented in the event note on 09/18/22. Additional specificity regarding the type, acuity of anemia is requested. History/Risk Factors: Lung Cancer, COPD, Hypertension Clinical indicators: 72-year-old female present to ED with complaints of vomiting and coughing up blood. 09/18 Vital signs: 100/65 129 28 97.4 97 % 09/18 HGB 11.5, 10.4, 8.2 HCT 34.3, 31.6, 26.8 Treatment: ICU/Telemetry monitoring Transfuse 2 units PRBC Monitor CBC Please clarify the type and acuity of anemia: [ ] Acute blood loss anemia [ ] Unable to determine [ ] Other, please specify (Template Last Revised: November 2020) Hb droped to 8.2, she got blood transfusion for acute blood loss anemia MTDD
--- NOTE | 2022-09-23 09:33 | CDI ---
Documentation Clarification Form Date: 09/23/2022 08:30:10 AM From: Kristi Stahl RN, CCDS Admit Date: 09/18/2022 07:01:00 AM Patient Name: Rhonda Chen Visit Number: [id number] Discharge Date: 09/18/2022 08:26:00 PM ATTENTION: The Clinical Documentation Specialists (CDI) and [facility] Coding Staff appreciate your assistance in clarifying documentation. Please respond to the clarification below the line at the bottom and electronically sign. The CDI & [facility] Coding staff will review the response and follow-up if needed. Please note: Queries are made part of the Legal Health Record. If you have any questions, please contact the author of this message via ITS. Dr. Goodman E Sheet There is documentation of A-team was activated on 09/18/22. Additional clarification is requested. History/Risk Factors: Lung Cancer, COPD, Hypertension Clinical Indicators: 72-year-old female present to ED with complaints of vomiting and coughing up blood. 09/18 in ED BP noted to be 70/49 at 05:51 70/28 at 05:56 treated with 500 mls .9 normal saline bolus. 09/18 at 1400 she was unresponsive, lost pulse and was in PEA, CPR started. 09/18 14:15Vital signs 60/33 144 92 % BVM (Nursing) 09/18 HGB 11.5, 10.4, 8.2 HCT 34.3, 31.6, 26.8 Treatment: ICU/Telemetry monitoring Epinephrine x3 doses, 2 AMP of bicarb, 2.5 MG magnesium and 1,000MG Calcium chloride 09/18 2 units of PRBC 09/18 Vasopressin 51 MLS @ 4.59 MLS/hr IV (per orders) 09/18 .9NS 500 MLS bolus 09/18 Can you please clarify if treatment provided meet criteria for? [ ] Hypovolemic Shock [ ] Other, please specify [ ] Unable to determine (Template Last Revised: December 2020) Unable to determine MTDD
--- NOTE | 2022-09-24 11:33 | CDI ---
Documentation Clarification Form Date: 09/24/2022 11:25:49 AM From: Nelsy Cassidy RN, CCDS Email: [email or web address] Admit Date: 09/18/2022 07:01:00 AM Patient Name: Rhonda Chen Visit Number: [id number] Discharge Date: 09/18/2022 08:26:00 PM ATTENTION: The Clinical Documentation Specialists (CDI) and [facility] Coding Staff appreciate your assistance in clarifying documentation. Please respond to the clarification below the line at the bottom and electronically sign. The CDI & [facility] Coding staff will review the response and follow-up if needed. Please note: Queries are made part of the Legal Health Record. If you have any questions, please contact the author of this message via ITS. Dr. Goodman Sheet, Your patient presented with dyspnea and hemoptysis, went into cardiopulmonary arrest, was resuscitated and received ICU care on the ventilator. Based on this information and the findings below, is there an additional diagnosis that is clinically appropriate for this patient? History/Risk Factors: COPD, hypertension, arthritis, lung cancer, bullous pemphigoid, recently at inpatient rehab secondary to traumatic subarachnoid hemorrhage with loss of consciousness for 30 minutes or less and hemiplegia and hemiparesis following cerebral infarction. Presented to the ED with dyspnea and hemoptysis. Tobacco use: smoked for 30 years. Quit 10 years ago Clinical Indicators: 09/18 H&P: On admission patient was hypoxic on 10 L nonrebreather and hypotensive tachycardic. Currently patient saturating 92% on 6 L oxygen via nasal cannula, slightly tachycardic at 102-105. Blood pressure 156/96. Patient also she had CTA of the chest with IV contrast because of shortness of breath and coughing up of blood and showed no pulmonary embolism but left lower lobe mass suspicious for neoplasm and there is possible invasion of the left lateral wall of the descending thoracic aorta. No evidence of hemorrhage at this time (CT done 09/16). 09/18 Vital signs: RR high of 28 09/18 Pulse oximetry: 92-100% 09/18 ABG/CBG: pH 7.01, pCO2 50, HCO3 13 Treatment: Supplemental oxygen with NRB mask then intubation/ventilator support post cardiopulmonary arrest. ICU care. Breathing tx: Duoneb Q4H Is there an additional diagnosis that is clinically appropriate for this patient? [ ] Acute Hypoxic Respiratory Failure (pO2 <60 mm Hg or SpO2 <91% on room air) [ ] Acute Hypercapnic Respiratory Failure (pCO2 >50 and pH <7.35) [ ] Other Diagnosis, please specify [ ] Unable to determine I saw the pt more than once while she was in Emergency Room , and when she coughed more blood i went to see her again (with was at bed side ) and I discussed the case with pulmonary/critical care team multiple times about the pt (even when she coded i contacted ICU team and updated them about her code blue), she was on 6 L per min via nasal cannula all the time (oxygen saturation was 92% as above and she was mildly tachypneic) , so i think she qualify for Dx of acute hypoxic resp failure MTDD
== END 2022-09-18 20:26 | disposition expired | DRG 208 ==
LOC: EC 05:38 → 3SCARD 07:01 → 2SICU 10:51
PROVIDERS: ADMIT Hospitalist; ATTEND Hospitalist
PROC: 05H633Z Insertion of Infusion Device into Left Subclavian Vein, Percutaneous Approach (ICD-10-PCS; 2022-09-17)
PROC: 0BH17EZ Insertion of Endotracheal Airway into Trachea, Via Natural or Artificial Opening (ICD-10-PCS; principal; 2022-09-18)
PROC: 5A1935Z Respiratory Ventilation, Less than 24 Consecutive Hours (ICD-10-PCS; principal; 2022-09-18)
PROC: 5A12012 Performance of Cardiac Output, Single, Manual (ICD-10-PCS; 2022-09-18)
PROC: 30233N1 Transfusion of Nonautologous Red Blood Cells into Peripheral Vein, Percutaneous Approach (ICD-10-PCS; 2022-09-18)
PROC: 3E033XZ Introduction of Vasopressor into Peripheral Vein, Percutaneous Approach (ICD-10-PCS; 2022-09-18)
DX: C34.90 Malignant neoplasm of unspecified part of unspecified bronchus or lung (principal); J69.0 Pneumonitis due to inhalation of food and vomit; J96.01 Acute respiratory failure with hypoxia; I69.059 Hemiplegia and hemiparesis following nontraumatic subarachnoid hemorrhage affecting unspecified side; R47.01 Aphasia; E87.20 Acidosis, unspecified; R04.2 Hemoptysis; J44.1 Chronic obstructive pulmonary disease with (acute) exacerbation; C79.89 Secondary malignant neoplasm of other specified sites; E87.1 Hypo-osmolality and hyponatremia; D62 Acute posthemorrhagic anemia; I46.8 Cardiac arrest due to other underlying condition; Z51.5 Encounter for palliative care; Z66 Do not resuscitate; I10 Essential (primary) hypertension; E86.1 Hypovolemia; D64.9 Anemia, unspecified; Z20.822 Contact with and (suspected) exposure to COVID-19; M47.892 Other spondylosis, cervical region; M43.12 Spondylolisthesis, cervical region; E78.5 Hyperlipidemia, unspecified; D17.79 Benign lipomatous neoplasm of other sites; G31.89 Other specified degenerative diseases of nervous system; R19.7 Diarrhea, unspecified; R55 Syncope and collapse; K59.00 Constipation, unspecified; Z86.19 Personal history of other infectious and parasitic diseases; Z85.118 Personal history of other malignant neoplasm of bronchus and lung; Z98.42 Cataract extraction status, left eye; Z98.41 Cataract extraction status, right eye; Z79.899 Other long term (current) drug therapy; Z86.16 Personal history of COVID-19; Z87.11 Personal history of peptic ulcer disease; Z90.49 Acquired absence of other specified parts of digestive tract; Z87.891 Personal history of nicotine dependence; Z88.6 Allergy status to analgesic agent; Z91.041 Radiographic dye allergy status
CPT/HCPCS: 36415; 36600; 71045; 80053; 82140; 82805; 83605; 83690; 83735; 83880; 84100; 84484; 85025; 85610; 85730; 86850; 86900; 86901; 86920; 87635; 92950; 93005; 94002; 94640; 96361; 96374; 96375; 96376; 99291